=== PATIENT | male | born 1975 | race Caucasian/White ===

== ENCOUNTER 2024-06-06 02:07 | Emergency (ER) | payer OTHER, SELFPAY ==
[2024-06-06] VITALS (7 sets, daily range): BP systolic 103–164; BP diastolic 58–80; PULSE 83–89; RESP 16–20; TEMP 36.6; O2SAT 92–95; BMI 34.8
--- NOTE | 2024-06-06 02:22 | XRR_ITS ---
PROCEDURE INFORMATION: Exam: XR Chest Exam date and time: 06/06/2024 2:28 AM Age: 49 years old Clinical indication: Cough and shortness of breath; Cough with SOB; Additional info: Short of breath TECHNIQUE: Imaging protocol: Radiologic exam of the chest. Views: 1 view. COMPARISON: No relevant prior studies available. FINDINGS: Lungs: Possible mild right mid lung field pneumonia. Pleural spaces: Unremarkable. No pleural effusion. No pneumothorax. Heart/Mediastinum: Unremarkable. No cardiomegaly. Bones/joints: Moderate thoracic spondylosis. XR/XR chest 1V portable [id number] IMPRESSION: Possible mild right mid lung field pneumonia.
[2024-06-06] MEDS: ipratropium-albuterol 3 mL Neb INHALATION (02:23)
[2024-06-06 02:33] LABS: Basophils # 0.1 10^3/uL (0.0-0.1); Basophils % 1.5 %; Eosinophils # 0.4 10^3/uL (0.0-0.8); Eosinophils % 4.6 %; Hematocrit 44.1 % (37-53); Lymphocytes # 3.2 10^3/uL (0.8-4.8); Lymphocytes % 33.7 %; Mean Corpuscular HGB Conc 33.1 g/dL (30-55); Mean Corpuscular Hemoglobin 30.5 pg (27-33); Mean Corpuscular Volume 92.1 fl (82-101); Mean Platelet Volume 10.9 fL (7.4-10.4); Monocytes # 0.7 10^3/uL (0.2-0.9); Neutrophils # 4.91 10^3/uL (1.8-7.7); Neutrophils % 52.2 %; Nucleated Red Blood Cells % 0 %; Platelet Count 340 10^3/cmm (157-399); Red Blood Count 4.79 10^6/uL (3.85-5.65); Red Cell Distribution Width 13.2 % (12.1-15.1)
[2024-06-06 02:44] LABS: Base Excess VBG -0.6 mmol/L (-3.0-3.0); Blood Gas Sample Site Not specified; Blood Gas Sample Type Venous; HCO3 VBG 23.4 mmol/L (24-28); PCO2 VBG 35.8 mmHg (41-51); PO2 VBG 41.1 mmHg (25-40); Venous Blood Gas Hematocrit 43.9 % (42-52); pH VBG 7.42 (7.32-7.42)
[2024-06-06 03:04] LABS: Albumin Level 4.2 g/dL (3.5-5.2); Alkaline Phosphatase 83 U/L (40-130); Blood Urea Nitrogen 25 mg/dL (6-20); Calcium 9.6 mg/dL (8.5-10.5); Carbon Dioxide 21 mmol/L (22-29); Chloride 103 mmol/L (98-107); Creatinine Clr Calc Pharmacy 104.0286; Globulin 2.8 g/dL (1.3-4.6); Glomerular Filtration Rate 71.1 mL/min (90-130); Glucose 134 mg/dL (65-115); Osmolality Calculated 296 mOsm/kg (285-295); Sodium 140 mmol/L (136-145); Total Bilirubin 0.4 mg/dL (0.15-1.2)
[2024-06-06 03:05] LABS: Anion Gap 19.7 (5-19); Potassium 3.7 mmol/L (3.5-5.1)
[2024-06-06 03:06] LABS: NT Pro B Type Natriuretic Pept 559 pg/mL (0-125)
[2024-06-06 03:17] LABS: Alanine Aminotransferase < 5 U/L (0-41); Aspartate Amino Transferase 5 U/L (0-40)
--- NOTE | 2024-06-06 03:54 | ED_ITS ---
HPI - SOB/Dyspnea 2 General: Chief Complaint: Shortness of Breath/Dyspnea Stated Complaint: SoB lips tingling Time Seen by Provider: 06/06/24 02:21 History of Present Illness: HPI Narrative: Jody, an [place] with a history of hypertension, presents to the emergency department with shortness of breath and tingling lips. The patient reports waking up with these symptoms, with no apparent trigger or new medications. The patient describes feeling short of breath and experiencing tingling in the lips. The onset of symptoms was upon waking, with no clear precipitating factors mentioned. The patient denies any perioral swelling but reports feeling a little short of breath. When asked about the tingling sensation in the lips, the patient confirms it is still present during the examination. The patient mentions quitting smoking a year ago, which may be relevant to the current respiratory symptoms. The patient's medical history includes controlled hypertension, for which they are taking medication. They also report a history of acid reflux and high cholesterol. The patient is currently taking gabapentin and venlafaxine for depression but states they are no longer taking trazodone for sleep or the previously prescribed pain medication. No recent healthcare interactions or changes in overall health status were mentioned prior to this emergency department visit. The patient tried using an albuterol inhaler at home before coming to the emergency department, but it did not provide sufficient relief. Related Data Previous Rx's ?Medication ?Instructions ?Recorded ipratropium 0.5 mg-albuterol 3 mg 3 ml inhalation BID #90 mL 06/06/24 (2.5 mg base)/3 mL nebulization soln levofloxacin 750 mg tablet 750 mg PO DAILY 7 days #7 t abs 06/06/24 prednisone 20 mg tablet 20 mg PO DAILY #5 tabs 06/06 Allergies Allergy/AdvReac Type Severity Reaction Status Date / Time varenicline (From Chantix) Allergy Mild ADR-Anxiety Verified 06/06/24 04:36 Physical Exam 2 Narrative: EXAM NARRATIVE: Lung evaluation after a DuoNeb demonstrated crackles in the right lower lung and resolution of wheezing. He was then breathing easily and speaking in complete sentences. Const: COMMON NORMALS: no acute distress, patient oriented x3, healthy appearing, alert and well nourished HENMT: COMMON NORMALS: normocephalic HEAD & SCALP: normocephalic Eye: COMMON NORMALS: EOMs intact bilaterally Neck/C-Spine: COMMON NORMALS: full ROM and supple Resp: EFFORT & INSPECTION: Yes tachypneic, Yes labored, No stridor and Yes audible wheezes AUSCULTATION: wheezes throughout and diminished lung sounds bilateral Cardio: COMMON NORMALS: regular rate, regular rhythm, No gallops present (Cardio) and No murmurs present (Cardio) RATE: regular rate RHYTHM: r egular rhythm GI: COMMON NORMALS: Soft to palpation and non-tender PALPATION: Yes Soft to palpation Extremity: GENERAL: Yes normal exam except as noted Neuro: COMMON NORMALS: patient oriented x3 SENSORIUM/ORIENTATION: Yes alert Skin: COMMON NORMALS: no rashes or lesions noted GENERAL SKIN EXAM: no rashes or lesions noted Course 2 Vital Signs: Vital signs: Vital Signs Temperature 98 F 06/06/24 02:17 Pulse Rate 86 06/06/24 04:07 Respiratory Rate 16 06/06/24 04:07 Blood Pressure 128/60 06/06/24 04:07 Pulse Oximetry 92 06/06/24 04:07 Oxygen Delivery Me thod Nasal Cannula 06/06/24 04:07 Oxygen Flow Rate 2 06/06/24 03:21 MDM - SOB/Dyspnea Medical Decision Making 49-year-old male presents to the emergency department for evaluation of shortness of breath and tingling in his lips. Patient had significantly diminished breath sounds and wheezing upon arrival in the emergency department. A single DuoNeb treatment improved his breathing dramatically. He was able to titrate off of nasal cannula onto room air satting 9596% on room air. Chest x- ray demonstrated a right middle lobe pneumonia which was consistent with the crackles heard on exam. Given his significant wheezing on presentation the patient will be treated with prednisone and DuoNebs for the next week as well as started on Levaquin for 7 days. Encourage patient to follow with his primary care doctor within 1 week. Return precautions were discussed and the patient was discharged home in good condition. Differential Diagnosis Likely acute exacerbation of chronic obstructive airways disease, congestive heart failure, community acquired pneumonia, asthma with exacerbation and pulmonary embolism Lab Data 06/06/24 02:23 06/06/24 02:23 Labs/Radiology: Radiology Impressions Chest X-Ray 06/06/24 02:22 IMPRESSION: Possible mild right mid lung field pneumonia. Laboratory Results WBC 9.40 10^3/uL (3.29-11.43) 06/06/24 02:23 RBC 4.79 10^6/uL (3.85-5.65) 06/06/24 02:23 Hgb 14.60 g/dL (11.27-16.99) 06/06/24 02:23 Hct 44.1 % (37-53) 06/06/24 02:23 MCV 92.1 fl (82-101) 06/06/24 02:23 MCH 30.5 pg (27-33) 06/06/24 02:23 MCHC 33.1 g/dL (30-55) 06/06/24 02:23 RDW 13.2 % (12.1-15.1) 06/06/24 02:23 Plt Count 340 10^3/cmm (157-399) 06/06/24 02:23 MPV 10.9 fL (7.4-10.4) H 06/06/24 02:23 Neut % (Auto) 52.2 % 06/06/24 02:23 Lymph % (Auto) 33.7 % 06/06/24 02:23 Tate % (Auto) 7.0 % 06/06/24 02:23 Eos % (Auto) 4.6 % 06/06/24 02:23 Baso % (Auto) 1.5 % 06/06/24 02:23 Neut # (Auto) 4.91 10^3/uL (1.8-7.7) 06/06/24 02:23 Lymph # (Auto) 3.2 10^3/uL (0.8-4.8) 06/06/24 02:23 Tate # (Auto) 0.7 10^3/uL (0.2-0.9) 06/06/24 02:23 Eos # (Auto) 0.4 10^3/uL (0.0-0.8) 06/06/24 02:23 Baso # (Auto) 0.1 10^3/uL (0.0-0.1) 06/06/24 02:23 Nucleated RBC % (auto) 0 % 06/06/24 02:23 Nucleated RBCs # 0.0 /100WBC 06/06/24 02:23 Specimen Type Venous 06/06/24 02:39 Sample Site Not specified 06/06/24 02:39 Hans Test N/a 06/06/24 02:39 VBG pH 7.42 (7.32-7.42) 06/06/24 02:39 VBG pCO2 35.8 mmHg (41-51) L 06/06/24 02:39 VBG pO2 41.1 mmHg (25-40) H 06/06/24 02:39 VBG HCO3 23.4 mmol/L (24-28) L 06/06/24 02:39 VBG Base Excess -0.6 mmol/L (-3.0-3.0) 06/06/24 02:39 VBG Hematocrit 43.9 % (42-52) 06/06/24 02:39 Inspector Ball Points ID [email or web address] 06/06/24 02:39 Sodium 140 mmol/L (136-145) 06/06/24 02:23 Potassium 3.7 mmol/L (3.5-5.1) 06/06/24 02:23 Chloride 103 mmol/L (98-107) 06/06/24 02:23 Carbon Dioxide 21 mmol/L (22-29) L 06/06/24 02:23 Anion Gap 19.7 (5-19) H 06/06/24 02:23 BUN 25 mg/dL (6-20) H 06/06/24 02:23 Creatinine 1.1 mg/dL (0.7-1.2) 06/06/24 02:23 GFR Calculation 71.1 mL/min (90-130) L 06/06/24 02:23 Glucose 134 mg/dL (65-115) H 06/06/24 02:23 Calculated Osmolality 296 mOsm/kg (285-295) H 06/06/24 02:23 Calcium 9.6 mg/dL (8.5-10.5) 06/06/24 02:23 Total Bilirubin 0.4 mg/dL (0.15-1.2) 06/06/24 02:23 AST 5 U/L (0-40) 06/06/24 02:23 ALT < 5 U/L (0-41) 06/06/24 02:23 Alkaline Phosphatase 83 U/L (40-130) 06/06/24 02:23 NT-Pro-B Natriuret Pep 559 pg/mL (0-125) H 06/06/24 02:23 Total Protein 7.0 g/dL (6.6-8.7) 06/06/24 02:23 Albumin 4.2 g/dL (3.5-5.2) 06/06/24 02:23 Globulin 2.8 g/dL (1.3-4.6) 06/06/24 02:23 XR interpretation done by ED provider, pending radiology final review Discharge Plan Discharge Patient Disposition: Home Clinical Impression: Acute exacerbation of chronic obstructive airways disease Community acquired pneumonia Qualifiers: Laterality: right Lung location: middle lobe of lung Qualified Code(s): J18.9 - Pneumonia, unspecified organism Condition: Stable Prescriptions: New levofloxacin 750 mg tablet 750 mg PO DAILY 7 Days Qty: 7 0RF prednisone 20 mg tablet 20 mg PO DAILY Qty: 5 0RF ipratropium-albuterol 0.5 mg-3 mg(2.5 mg base)/3 mL solution for nebulization 3 ml inhalation BID Qty: 90 0RF Discharge Orders: Discharge ED (Routine); Ordered 06/06/24 Ordered By: Ovidio Guillory Referrals: Aretha Rosario MD [Primary Care Provider] - Discharge Diet: Advance as tolerated Discharge Activity: Increase activity as tolerated Patient Instructions: Opioid Safety, Pain Management Print Language: Mohawk Coding Level of Care Code ED Senior Java Web Developer for Evelyn Martinez
[2024-06-06] MEDS: levoFLOXacin 750 mg Tablet PO (04:41)
== END 2024-06-06 05:50 | disposition home or self-care (01) ==
PROVIDERS: Emergency Provider General Practice; PCP Family Medicine
DX: J44.1 Chronic obstructive pulmonary disease with (acute) exacerbation (principal); J18.9 Pneumonia, unspecified organism
CPT/HCPCS: 71045; 80053; 82803; 83880; 85025; 94640; 99284; J9999

== ENCOUNTER 2024-10-21 08:33 | Emergency (ER) | payer OTHER, SELFPAY ==
--- NOTE | 2024-10-21 08:36 | ECG_ITS ---
[facility]24[facility]21 Pat Name: Bobo Vera Department: Room: Gender: Male Inclusion Manager: : 1975 Requested By: Mina Castrejon Order Number: [id number] Summer MD: Jose Arredondo M.D. Measurements Intervals [place] Rate: 65 P: -2 IN: 161 QRS: 53 QRSD: 96 T: 59 QT: 451 QTc: 472 Interpretive Statements SINUS RHYTHM MILD DIFFUSE ST ELEVATION, CONSIDER EARLY REPOLARIZATION, PERICARDITIS, AND INJURY PROLONGED QT INTERVAL No previous ECG available for comparison Electronically Signed On 10-21-2024 21:40:12 CDT by Jose Arredondo M.D. [email or web address]
[2024-10-21 08:38] VITALS: BP 149/76; PULSE 64; RESP 18; TEMP 36.7; O2SAT 99; BMI 35.2
--- NOTE | 2024-10-21 08:39 | XR_ITS ---
WS: [id number] Portable AP upright chest, 10/21/2024 Clinical Data: chest pain Comparison: Portable chest, 06/06/2024 Findings: No nodules, masses or effusions are seen. The heart is normal. The pulmonary vascularity is not increased. No pneumonia or pneumothorax is seen. Monitor leads are on the chest wall. XR/XR chest 1V portable [id number] Impression: Negative chest.
--- NOTE | 2024-10-21 08:40 | W.ED.CHESTPA ---
HPI - Chest Pain General: Chief Complaint: Chest Pain Stated Complaint: CP hands and feet going numb vision went white Time Seen by Provider: 10/21/24 08:39 History of Present Illness: 49-year-old male presents emergency room complaining of discomfort. 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 Today he started getting some chest discomfort describes it as more of a pressure in the center of his chest he gets some associated clamminess and shortness of breath with that he has some mild chest discomfort at this time. He has a history of paroxysmal atrial fibrillation he is on metoprolol for this no anticoagulation he is also on an SITA inhibitor and hydrochlorothiazide. He did take all of his medications today. He has no known history of coronary artery disease several years ago when he first had A-fib he had not angiogram when she was told was normal. He converted spontaneously and was on metoprolol since then. Associated symptoms: Deny abdominal pain, dyspnea, fever(s) or palpitations Related Data Home Medications ?Medication ?Instructions ?Recorded ?Confirmed benazepril 5 mg tablet 5 mg PO DAILY 10/21/24 10/21/24 clomiphene citrate 50 mg tablet 50 mg PO DAILY 10/21/24 10/21/24 (Clomid) diclofenac sodium 75 mg 75 mg PO BID 10/21/24 10/21/24 tablet,delayed release famotidine 40 mg tablet 40 mg PO DAILY 10/21/24 10/21/24 fenofibrate nanocrystallized 145 145 mg PO DAILY 10/21/24 10/21/24 mg tablet gabapentin 300 mg capsule 300 mg PO BID 10/21/24 10/21/24 metoprolol tartrate 100 mg tablet See Rx Instructions .Route .COMPLEX 10/21/24 10/21/24 montelukast 10 mg tablet 10 mg PO DAILY 10/21/24 10/21/24 pravastatin 80 mg tablet 40 mg PO QPM 10/21/24 10/21/24 tadalafil 20 mg tablet 20 mg PO DAILY PRN Erectile 10/21/24 10/21/24 Dysfunction venlafaxine 150 mg 150 mg PO DAILY 10/21/24 10/21/24 capsule,extended release 24 hr Allergies Allergy/AdvReac Type Severity Reaction Status Date / Time varenicline (From Chantix) Allergy Mild ADR-Anxiety Verified 06/06/24 04:36 Review of Systems Const: Denies: fever(s) or chills Card: Reports: chest pain (Pressure); Denies: palpitations, edema or swelling of feet/ankles Resp: Denies: dyspnea GI: Denies: abdominal pain : Denies: dysuria, urinary frequency or urinary urgency Musc: Denies: neck pain or back pain Skin/Breast: Denies: rash Neuro: Reports: dizziness [facility] ED PFSH: Medical History Paroxysmal atrial fibrillation Physical Exam Const: GENERAL APPEARANCE: cooperative ORIENTATION/CONSCIOUSNESS: Yes awake, Yes oriented to person, Yes oriented to place and Yes oriented to time HENMT: COMMON NORMALS: normocephalic, atraumatic and hearing grossly normal bilaterally HEAD & SCALP: normocephalic and atraumatic Resp: COMMON NORMALS: normal respiratory effort, No retractions, No use of accessory muscles and clear to auscultation bilaterally AUSCULTATION: clear to auscultation bilaterally Cardio: COMMON NORMALS: regular rate, regular rhythm and No murmurs present (Cardio) RATE: regular rate RHYTHM: regular rhythm GI: COMMON NORMALS: Soft to palpation and No hepatosplenomegaly present AUSCULTATION: Yes normoactive bowel sounds PALPATION: Yes Soft to palpation, No Tenderness to palpation present (GI), No Guarding due to palpation present (GI) and Yes No hepatosplenomegaly present Extremity: COMMON NORMALS: normal to inspection, capillary refill normal, no clubbing, cyanosis or edema, no calf tenderness and no pedal edema Neuro: SENSORIUM/ORIENTATION: Yes oriented to person, Yes oriented to place and Yes oriented to time Skin: COMMON NORMALS: no rashes or lesions noted GENERAL SKIN EXAM: no rashes or lesions noted Course Vital Signs: Vital signs: Vital Signs Temperature 98.1 F 10/21/24 08:38 Pulse Rate 63 10/21/24 11:45 Respiratory Rate 18 10/21/24 08:38 Blood Pressure 134/73 10/21/24 11:45 Pulse Oximetry 96 10/21/24 11:45 Oxygen Delivery Me thod Room Air 10/21/24 10:48 MDM - Chest Pain Medical Decision Making No further symptoms at this time. Large part of his symptoms seem to be postural he reports that he gets lightheaded dizzy when he bends over and then stands back up. He has not had a lot of palpitations or arrhythmias has the previous history of paroxysmal A-fib he reports he had converted spontaneously and has been controlled with metoprolol is not on any anticoagulation. Cardiac enzymes and EKG did not show acute coronary syndrome. Will discharge patient home outpatient Lexiscan sestamibi stress test 72-hour Holter monitor and will have him hold his hydrochlorothiazide follow-up with cardiology or primary care to review results return if he has further problems. Medical Records I reviewed the patient's medical records. Lab Data I reviewed the patient's lab results. 10/21/24 08:45 10/21/24 08:45 Radiology Impressions Chest X-Ray 10/21/24 08:39 Impression: Negative chest. Laboratory Results WBC 9.58 10^3/uL (3.29-11.43) 10/21/24 08:45 RBC 4.88 10^6/uL (3.85-5.65) 10/21/24 08:45 Hgb 14.40 g/dL (11.27-16.99) 10/21/24 08:45 Hct 44.0 % (37-53) 10/21/24 08:45 MCV 90.2 fl (82-101) 10/21/24 08:45 MCH 29.5 pg (27-33) 10/21/24 08:45 MCHC 32.7 g/dL (30-55) 10/21/24 08:45 RDW 13.8 % (12.1-15.1) 10/21/24 08:45 Plt Count 285 10^3/cmm (157-399) 10/21/24 08:45 MPV 10.6 fL (7.4-10.4) H 10/21/24 08:45 Neut % (Auto) 58.5 % 10/21/24 08:45 Lymph % (Auto) 25.7 % 10/21/24 08:45 Baldwin % (Auto) 9.3 % 10/21/24 08:45 Eos % (Auto) 4.6 % 10/21/24 08:45 Baso % (Auto) 1.4 % 10/21/24 08:45 Neut # (Auto) 5.61 10^3/uL (1.8-7.7) 10/21/24 08:45 Lymph # (Auto) 2.5 10^3/uL (0.8-4.8) 10/21/24 08:45 Baldwin # (Auto) 0.9 10^3/uL (0.2-0.9) 10/21/24 08:45 Eos # (Auto) 0.4 10^3/uL (0.0-0.8) 10/21/24 08:45 Baso # (Auto) 0.1 10^3/uL (0.0-0.1) 10/21/24 08:45 Nucleated RBC % (auto) 0 % 10/21/24 08:45 Nucleated RBCs # 0.0 /100WBC 10/21/24 08:45 Sodium 139 mmol/L (136-145) 10/21/24 08:45 Potassium 4.3 mmol/L (3.5-5.1) 10/21/24 08:45 Chloride 104 mmol/L (98-107) 10/21/24 08:45 Carbon Dioxide 25 mmol/L (22-29) 10/21/24 08:45 Anion Gap 14.3 (5-19) 10/21/24 08:45 BUN 29 mg/dL (6-20) H 10/21/24 08:45 Creatinine 1.2 mg/dL (0.7-1.2) 10/21/24 08:45 GFR Calculation 64.4 mL/min (90-130) L 10/21/24 08:45 Glucose 105 mg/dL (65-115) 10/21/24 08:45 Calculated Osmolality 294 mOsm/kg (285-295) 10/21/24 08:45 Calcium 10.2 mg/dL (8.5-10.5) 10/21/24 08:45 Total Bilirubin 0.4 mg/dL (0.15-1.2) 10/21/24 08:45 AST 22 U/L (0-40) 10/21/24 08:45 ALT 24 U/L (0-41) 10/21/24 08:45 Alkaline Phosphatase 59 U/L (40-130) 10/21/24 08:45 Troponin T Baseline 18 ng/L (0-15) H 10/21/24 08:45 Troponin T 120 Minute 16.95 ng/L (0-15) H 10/21/24 10:30 Delta Troponin T -1.05 ABS# (0-10) L 10/21/24 10:30 Total Protein 6.9 g/dL (6.6-8.7) 10/21/24 08:45 Albumin 4.4 g/dL (3.5-5.2) 10/21/24 08:45 Globulin 2.5 g/dL (1.3-4.6) 10/21/24 08:45 All radiology interpretation(s) finalized by discharge EKG Data EKG 1: Interpretation: EKG 10/21/2024 8:36 AM sinus rhythm rate of 65. No focal 161 QTc 463. LVH with early repull no ST elevation no T wave inversion does have prolonged QT. No previous EKGs for comparison EKG 2: Interpretation: EKG 910 2024-11-26. QT slightly prolonged otherwise normal sinus rhythm with a rate of 60 SD interval 151 QTc is 471. There is some slight changes of early repull but no acute ST changes noted compared to previous EKGs done on the same day no significant change Discharge Plan Discharge Patient Disposition: Home Clinical Impression: Atypical chest pain, Paroxysmal atrial fibrillation, Orthostasis, Medication side effect Condition: Stable Prescriptions: Discontinued hydrochlorothiazide 25 mg Tablet 25 mg PO DAILY No Action benazepril 5 mg Tablet 5 mg PO DAILY metoprolol tartrate 100 mg Tablet See Rx Instructions .ROUTE .COMPLEX Rx Instructions: Take 1 tablet by mouth up to twice daily. clomiphene citrate [Clomid] 50 mg tablet 50 mg PO DAILY famotidine 40 mg Tablet 40 mg PO DAILY venlafaxine 150 mg Capsule,Extended Release 24hr 150 mg PO DAILY pravastatin 80 mg Tablet 40 mg PO QPM gabapentin 300 mg Capsule 300 mg PO BID diclofenac sodium [Voltaren] 75 mg Tablet,Delayed Release (Dr/Ec) 75 mg PO BID montelukast 10 mg Tablet 10 mg PO DAILY tadalafil 20 mg Tablet 20 mg PO DAILY PRN (Reason: Erectile Dysfunction) Rx Instructions: administer approximately 30min before sexual activity; do not use more than 1 dose per 24hrs fenofibrate nanocrystallized 145 mg Tablet 145 mg PO DAILY Discharge Orders: Discharge ED (Routine); Ordered 10/21/24 Ordered By: Mina Wick Referrals: Aretha Rosario MD [Primary Care Provider, Family Practice] Discharge Diet: Usual diet Discharge Activity: Resume usual activity Patient Instructions: Opioid Safety, Pain Management, Patient Portal & [place] Instructions Activity Restrictions/Additional Instructions: Thank you for choosing [facility] for your healthcare needs today. It is very important that you follow up as instructed or that you return to the Emergency Department should you have concerns or if your condition changes or worsens in any way. Emergency department visits are focused on emergent conditions, in some cases you may require further evaluation on an outpatient basis. You were seen in the emergency room with complaints of lightheadedness dizziness and some chest pain. Your EKG did not show any acute abnormalities. Your cardiac enzymes were normal. Based on your description of symptoms suspect that you may have some orthostasis. This is when you are changing body position causes your blood pressure drop this accounts for the dizziness and the sense of the vision decreasing at times. Recommend that you hold the hydrochlorothiazide for now. Additionally we will recommend that you get an outpatient stress test. Finally because of your history of A-fib recommend that you have a 3-day Holter monitor, this evaluates for any intermittent episodes of atrial fibrillation. For now continue the rest of your medications as previously prescribed pending the results of these tests. He should follow-up with a loss prevention guard. Case management will make arrangements for the testing and referral. (Please note that included in your discharge packet is information concerning opioid safety and pain management. This information is given to all patients were discharged from the ER regardless of their discharge diagnosis or the medicines they usually take or are prescribed.) Print Language: Yoruba Coding Level of Care Code ED Faro Dealer for Evelyn Martinez
--- OUTSIDE RECORDS SUMMARY | 2024-10-21 08:46 | XMS_ITS | Encounter Summary ---
Author Organization [facility] Address [address] [place] [address] Care Team Providers Care Vocational Examiner Name Role Phone Moises Vanegas MD Primary Care Provider [id number] Encounter Details Date Type Department Care Team (Latest Contact Info) Description 12/30/2000 Outpatient Historical [facility] [place] [address] [place] [address] Jayson Constantino Jr., MD [address] [facility] [address] [place] [address] HERPES SIMPLEX NOS (Primary Dx) Social History Tobacco Use Types Packs/Day Years Used Date Smoking Tobacco: Never Assessed Sex and Gender Information Value Date Recorded Sex Assigned at Not on file 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
--- OUTSIDE RECORDS SUMMARY | 2024-10-21 08:46 | XMS_ITS | Encounter Summary ---
Author Organization [facility] Address [address] [place] [address] Care Team Providers Care Retail Field Representative Name Role Phone Moises Vanegas MD Primary Care Provider -[id number] Reason for Referral * Outpatient Services (Routine) - Closed Specialty Diagnoses / Procedures Referred By Evelio encinas Referred To Contact Diagnoses Lumbosacral radiculitis Procedures XR FLUORO NEEDLE GUIDANCE Iam Denise MD Referral ID Status Reason Start Date Expiration Date Visits Re quested Visits Authorized [id number] Closed 01/16/2016 02/15/2017 1 1 FINISHER Encounter Details Date Type Department Care Team (Late Contact Info) Description 01/16/2016 Ancillary Orders [facility] Pain Management Procedures [place] [address] [place] [id number] Iam Denise MD NO ADDRESS ON FILE Lumbosacral radiculitis Social History Tobacco Use Types Packs/Day Years Used Date Smoking Tobacco: Every Day Cigarettes 0.3 16 Smokeless Tobacco: Never Alcohol Use Standard Drinks/Week Comments No 14 (1 standard drink = 0.6 oz pu re alcohol) occ 2 drinks daily or less Sex and Gender Information Value Date Recorded Sex Assigned at Not on file 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 Exam was auto-finalized. us Iam Denise MD DIAGNOSTIC IMAGING ORDERAB LES Final Result documented in this encounter Visit Diagnoses Diagnosis Lumbosacral radiculitis Thoracic or lumbosacral neuritis or radiculitis, unspecified Lumbosacral radiculitis Thoracic or lumbosacral neuritis or radiculitis, unspecified documented in this encounter Care Teams Retail Field Representative Relationship Specialty Start Date End Date Moises Vanegas MD [phone] (Work) PCP - General Family Practice 01/27/20 documented as of this encounter
--- OUTSIDE RECORDS SUMMARY | 2024-10-21 08:46 | XMS_ITS | Encounter Summary ---
Author Organization [facility] Address [address] [facility] [address] Care Team Providers Care Women'S Lacrosse Coach Name Role Phone Moises Vanegas MD Primary Care Provider -[phone] Encounter Details Date Type Department Care Team (Latest Contact Info) Description 01/25/2004 Outpatient [facility] Podiatry-[facility] [place] [address] [place] [address] Luigi Johnson DPKhalif NO ADDRESS ON FILE INGROWING NAIL (Primary Dx); Onychia of toe; OTHER HAMMER TOE Social History Tobacco Use Types Packs/Day Years Used Date Smoking Tobacco: Never Assessed Sex and Gender Information Value Date Recorded Sex Assigned at Not on file 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
--- OUTSIDE RECORDS SUMMARY | 2024-10-21 08:46 | XMS_ITS | Encounter Summary ---
Author Organization [facility] Address [address] [facility] [place] [address] Care Team Providers Care Design Assembler Name Role Phone Moises Vanegas MD Primary Care Provider -[phone] Encounter Details Date Type Department Care Team (Latest Contact Info) Description 06/26/2005 Outpatient Historical [facility] Family Medicine-[facility] [place] [address] [place] [address] Mansi Munguia MD [address] [place] [address] Other Nonspecific Findings on Examination of Blood (Primary Dx) Social History Tobacco Use Types Packs/Day Years Used Date Smoking Tobacco: Never Assessed Sex and Gender Information Value Date Recorded Sex Assigned at Not on file 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
--- OUTSIDE RECORDS SUMMARY | 2024-10-21 08:46 | XMS_ITS | Clinical Summary ---
Author Organization [facility] Address [address] [place]: Epic Prelude ADT [place] [address] Care Team Providers Care Type Copy Examiner Name Role Phone Hi, Team 1 [place] Primary Care Provider [phone] Allergies Active Allergy Reactions Criticality Noted Date Comments Varenicline Other (See Comments) High 03/04/2008 Depression, suicidal thoughts/CHANTIX Medications fluticasone propionate (FLONASE) 50 mcg/spray [place], Suspension nasal inhaler 0 Active albuterol sulfate (ProAir HFA) 90 mcg/Actuation inhaler 0 Active montelukast (SINGULAIR) 10 mg tablet 0 Active metoprolol tartrate (LOPRESSOR) 100 mg tablet 100 mg 2 times daily. 0 Active aspirin (ECOTRIN EC) 81 mg Tablet, Delayed Release (E.C.) TAKE ONE TABLET BY MOUTH ONCE DAILY 9 Active mometasone-formotero l (Dulera) 200-5 mcg/actuation inhaler Take 2 Puffs by inhalation. Active armodafiniL (NUVIGIL) 150 mg tablet Take 150 mg by mouth. Active famotidine (PEPCID) 40 mg tablet Take 40 mg by mouth 2 times daily. Active fenofibrate nanocrystallized (TRICOR) 145 mg tablet Take 145 mg by mouth daily. Active tamsulosin (FLOMAX) 0.4 mg capsule Take 0.4 mg by mouth daily. Active pravastatin (PRAVACHOL) 80 mg tablet Take 40 mg by mouth daily with supper. Active hydroCHLOROthiazide (HYDRODIURIL) 12.5 mg tablet Take 1 Tablet (12.5 mg) by mouth daily. 10 Tablet 2 Active gabapentin (NEURONTIN) 300 mg capsuleIndications:L umbar disc herniation with radiculopathy,S/P lumbar laminectomy,S/P fusion of sacroiliac joint Take 1 Capsule (300 mg) by mouth 3 times daily. 90 Capsule 3 3 Active acetaminophen (TYLENOL ORAL) Take by mouth. Active medical marijuana, for documentation purposes, Take by inhalation. Active benazepriL (LOTENSIN) 5 mg tablet Take 1 Tablet by mouth daily. 4 Active clomiPHENE citrate (CLOMID) 50 mg tablet Take 25 mg by mouth daily. 5 Active HYDROcodone-acetamin ophen (NORCO) 5-325 mg tabletIndications:La teral epicondylitis of right elbow,Medial epicondylitis of right elbow Take 1 Tablet by mouth 2 times daily as needed for Pain, Moderate. Max Daily Amount: 2 Tablets 8 Tablet 5 Active diclofenac sodium (VOLTAREN) 75 mg Tablet, Delayed Release (E.C.)Indications:La teral epicondylitis of right elbow,Radial collateral ligament sprain of elbow, right, sequela Take 1 Tablet (75 mg) by mouth 2 times daily. 60 Tablet 2 5 Active Active Problems Problem Noted Date Diagnosed Date Lumbar back pain with radicu lopathy affecting lower extremity 01/01/2023 ASHD (arteriosclerotic heart disease) 11/01/2021 Chest pain 10/31/2021 FRANK on CPAP 03/04/2019 BPH (benign prostatic hyperplasia) 03/04/2019 Preoperative general physical examination 2019 GERD (gastroesophageal reflux disease) 0 Anxiety 03/04/2019 Sacroiliitis 03/04/2019 Severe obesity (BMI 35.0-39.9) with comorbidity 03/04/2019 COPD (chronic obstructive pulmonary disease) Injury of finger of left hand 11/05/2015 Tenosynovitis of right foot 08/01/2015 Idiopathic peripheral neuropathy 08/01/2015 Lumbar epidural mass 05/04/2015 Ganglioneuroma 05/04/2015 Lumbar disc herniation with radiculopathy 2015 Tobacco use 02/23/2015 Essential hypertension 08/17/2013 Dyslipidemia 08/17/2013 Paroxysmal atrial fibrillation 08/17/2013 Leukocytosis 08/17/2013 Anal fistula 10/26/2010 Headache(784.0) 10/12/2008 Depression 04/09/2008 Resolved Problems Problem Noted Date Diagnosed Date Resolved Date Sore throat 04/09/2008 04/09/2008 Encounters Date Type Department Care Team Description 10/13/2024 External Device Data [facility] ABSTRACTION Provider, Abstract 09/30/2024 External Device Data [facility] ABSTRACTION Provider, Abstract 09/16/2024 External Device Data [facility] ABSTRACTION Provider, Abstract 08/26/2024 External Device Data [facility] ABSTRACTION Provider, Abstract 08/24/2024 8:30 AM CDT - 08/24/2024 11:59 PM CDT Hospital Encounter [facility] Out[facility] [place] [address] [place] [address] Akira Clement MD Discharge Disposition: Home or Self Care 07/24/2024 1:45 PM CDT Office Visit [facility] [address] [place] [address] Ronn Lindsey, Lateral epicondylitis of right elbow; Radial collateral ligament sprain of elbow, right, sequela from Last 3 Months Immunizations Immunization Administration Dates Next Due Influenza Seasonal Unspecified Formulation IM Family History Medical History Relation Name Comments High Cholesterol Brother Maximus Vera Hypertension Brother Maximus Vera Alive Healthy Daughter High Cholesterol Father Jf Vera Alive Cancer Maternal Grandfather Jayson Amaro Lung Ca ncer Colon Cancer Maternal Grandmother Kenzie Amaro at 78 High Cholesterol Mother Denise Bean Alive Colon Cancer Paternal Grandmother Other Sister 1 migraine No Known Problems Sister 2 No Known Problems Sister 3 Healthy Son Trinh Vera Healthy Relation Name Status Comments Brother Maximus Vera Alive Daughter Alive Father Jf Vera Alive Maternal Grandfather Jayson Amaro Maternal Grandmother Kenzie Amaro Mother Denise Bean Alive Paternal Grandmother Sister 1 Alive Sister 2 Alive Sister 3 Alive Son Trinh Vera Alive Social History Tobacco Use Types Packs/Day Years Used Date Smoking Tobacco: Former Cigarettes Smokeless Tobacco: Never Tobacco Cessation:Counseling Given: Not Answered Alcohol Use Standard Drinks/Week Comments Yes 3 (1 standard drink = 0.6 oz pur e alcohol) Feeling Safe Answer Date Recorded Are you in a relationship wi th someone who hurts you emotionally and/or physically? 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 Gender Identity Male 09/18/2022 10:28 AM CDT Sexual Orientation Straight 09/18/2022 10 :28 AM CDT Last Filed Vital Signs Vital Sign Reading Time Taken Comments Blood Pressure 124/60 07/24/2024 1:26 PM CDT Pulse 67 05/29/2023 7:54 AM CDT Temperature 36.2 C (97.2 F) 05/01/2023 11:30 AM CDT Respiratory Rate 16 05/01/2023 12:0 0 PM CDT Oxygen Saturation 98% 05/29/2023 7:54 AM CDT Inhaled Oxygen Concentration - - Weight 115.4 kg (254 lb 6.4 oz) 07/24/2024 1:26 PM CDT Height 180.3 cm (5' 11 ) 07/24/2024 1:26 PM CDT Body Mass Index 35.48 07/24/2024 1:26 PM CDT Plan of Treatment Health Maintenance Due Date Last Done Comments Pre-Diabetes and Diabetes Screening 1975 HEPATITIS B VACCINES (1 of 3 - 19+ 3-dose series) 1994 FIT-DNA Q 3 years 2020 FIT/FOBT Q 1 year 2020 Flex Sig/CT Colonography Q 5 years 2020 INFLUENZA VACCINE (#1) 2024 3, 01/30/2023, 12/03/2019, Additional history exists COLORECTAL SCREENING 10/20/2029 10/21/2019, 10/21/19 20 Colorectal Cancer Screening 10/20/2029 DTAP/TDAP/TD VACCINES (3 - T d or Tdap) 05/10/2030 05/10/2020, 02/11/2013, 07/12/2001, Additional history exists Medical Devices Implanted Type Area Screen Stretcher Device Identifier Shelf Expiration Date Model / Serial / Lot Hemostatic Gelfoam Powder 1gm [id number] - [id number] Implanted:Qty: 1 on 05/03/2015 by Edmundo Haq MD Hemostatic N/A: Spine Lumbar PFIZER- PHARM 12/11/2017 [id number] / / [id number] Hemostatic Gelfoam Spng 12-7mm [id number] - Csc - [id number] Implanted:Qty: 1 on 05/03/2015 by Edmundo Haq MD Hemostatic N/A: Spine Lumbar PFIZER- PHARM 03/13/2017 [id number] / / [id number] Pin Vidhi 3.2mm [id number] - [id number] Implanted:Qty: 1 on 04/06/2019 by Edmundo Haq MD Pin N/A: Spine Lumbar [employer] [id number] / / [id number] [place]-02 Pin Vidhi 3.2mm [id number] - [id number] Implanted:Qty: 1 on 04/06/2019 by Edmundo Haq MD Pin N/A: Spine Lumbar [employer] [id number] / / [id number] IN-02 Pin Vidhi 3.2mm [id number] - [id number] Implanted:03/15 by Edmundo Haq MD (Quantity not on file) Pin N/A: Spine Lumbar [employer] [id number] / / [id number] IN-02 Ifuse 7x40mm 7040m-90 - [id number] Implanted:03/15 by Edmundo Haq MD (Quantity not on file) Spine N/A: Spine Lumbar [employer] 09/16/2023 7040M-90 / / [id number] Ifuse 7x45mm 7045m-90 - [id number] Implanted:03/15 by Edmundo Haq MD (Quantity not on file) Spine N/A: Spine Lumbar [employer] 12/31/2023 7045M-90 / / [id number] Ifuse 7x50mm 7050m-90 - [id number] Implanted:Qty: 1 on 04/06/2019 by Edmundo Haq MD Spine N/A: Spine Lumbar [employer] 12/11/2023 7050M-90 / / [id number] Explanted Type Area Screen Stretcher Device Identifier Shelf Expiration Date Model / Serial / Lot Bone Screw Explanted:Qty: 1 on 05/27/2008 Left: Ankle Procedures Procedure Name Priority Date/Time Associated Diagnosis Comments COLONOSCOPY REPORT 10/21/2019 10 :34 AM CDT from Last 3 Months or Most Recently Relevant to Health Maintenance Results * COLONOSCOPY REPORT (10/21/2019 10:34 AM CDT) Narrative Procedure Note Robson Fox MD - 10/21/2019 10:34 AM CDT Procedures signed by Robson Fox MD at 10/21/2019 10:35 AM Author: Robson Fox MD Service: -- Author Type: Physician Filed: 10/21/2019 10:35 AM Date of Service: 10/21/2019 10:35 AM Status:Signed Business Coordinator: Robson Fox MD (Physician) Procedure Orders 1. COLONOSCOPY REPORT [[id number]] ordered by Robson Fox MDat 10/21/19 [facility] Patient Name: Chapito Vera Procedure Date: 10/21/2019 Date of : 1975 Admit Type: Outpatient Age: 44 Attending MD: Robson Fox , Procedure: Colonoscopy Indications: History of anal fissures/rectal bleeding Providers: Robson Fox Referring MD: Nitin Madden MD Medicines: Monitored Anesthesia Care Complications: No immediate complications. Estimated blood loss: Minimal. Procedure: Pre-Anesthesia Assessment: - Prior to the procedure, a History and Physical was performed, and patient medications and allergies were reviewed. The patient's tolerance of previous anesthesia was also reviewed. The risks and benefits of the procedure and the sedation options and risks were discussed with the patient. All questions were answered, and informed consent was obtained. Prior Anticoagulants: The patient has taken no previous anticoagulant or antiplatelet agents. ASA Grade Assessment: II - A patient with mild systemic disease. After reviewing the risks and benefits, the patient was deemed in satisfactory condition to undergo the procedure. - [place] Protocol: - Pre-procedure Verification: Prior to the procedure, the patient's identity was verified by full name and date of . The patient's identity was verified on all pertinent medical records, including History and Physical. Also prior to the procedure, a History and Physical was performed, and patient medications, allergies and sensitivities were reviewed. The patient's tolerance of previous anesthesia was reviewed. The risks and benefits of the procedure and the sedation options and risks were discussed with the patient. All questions were answered and informed consent was obtained. - Time-Out: Prior to the start of the procedure, the patient's identification, proposed procedure, accurate signed consent, correctly labeled images and records, and need for prophylactic antibiotics were verified by the physician and the nurse in the endoscopy suite. After I obtained informed consent, the scope was passed under direct vision. Throughout the procedure, the patient's blood pressure, pulse, and oxygen saturations were monitored continuously. The Colonoscope was introduced through the anus and advanced to the terminal ileum. The colonoscopy was performed without difficulty. The patient tolerated the procedure well. The terminal ileum, ileocecal valve, appendiceal orifice, and rectum were photographed. The entire colon was examined. Estimated Blood Loss: Estimated blood loss was minimal. Findings: The perianal and digital rectal examinations were normal. Pertinent negatives include normal sphincter tone, no palpable rectal lesions and no anal lesion or abnormality. Non-bleeding internal hemorrhoids were found during retroflexion. The hemorrhoids were small. The entire examined colon appeared normal. The terminal ileum appeared normal. Impression: - Non-bleeding internal hemorrhoids. - The entire examined colon is normal. - The examined portion of the ileum was normal. - No specimens collected. Recommendation: - Resume previous diet. - Continue present medications. - Repeat colonoscopy in 10 years for surveillance. - Patient has a contact number available for emergencies. The signs and symptoms of potential delayed complications were discussed with the patient. Return to normal activities tomorrow. Written discharge instructions were provided to the patient. - Return to primary care physician as previously scheduled. - The findings and recommendations were discussed with the patient's family. Robson Fox, 10/21/2019 10:34:53 AM Number of Addenda: 0 Note Initiated On: 10/21/2019 9:56 AM Scope Withdrawal Time 0 hours 6 minutes 47 seconds Scope In: 10:19:53 AM Scope Out: 10:32:04 AM [address] [place], [place] Robson Fox MD GI PROCEDURE ORDERABL ES Edited Result - Final from Last 3 Months or Most Recently Relevant to Health Maintenance Insurance * Guarantor: CHAPITO VERA Account Type Relation to Patient Date of Phone Billing Address Personal/Family [address] [place] [id number] [address] [facility] Commercial * Guarantor: OLD [employer] [facility] Account Type Relation to Patient Date of Phone Billing Address Corporate Other DEFAULT ADDRESS [address] [employer] [facility] [employer] * Guarantor: OLD [employer]-[facility] [employer] Account Type Relation to Patient Date of Phone B[facility] [address] [employer] Member Subscriber Plan / Payer (Ef fective 2020-Present) Name:Brandonstevenbridgette Chapito P Relation to Subscriber:Self Name:Chapito Vera P Payer ID:Not on file Group ID:Not on file Type:[place] Address: [place] [id number] * Guarantor: OLD [employer]-[facility] Account Type Relation to Patient Date of Phone Billing [facility] DEFAULT ADDRESS [address] [employer] * Guarantor: OLD [employer] [employer] Account Type Relation to Patient Date of Phone Billing Address Corporate Employer DEFAULT ADDRESS [address] [employer] Advance Directives For more information, please contact: [phone] Documents on File Type Date Recorded Patient Marketing And Communications Officer Expl anation Advance Directive POA 05/06/2015 10:51 AM Advance Directive POA * Full Code (Latest Code Status on File) Date Activated Date Inactivated Comments 11/01/2021 1:03 AM 11/01/2021 6:05 PM Care Teams Type Copy Examiner Relationship Specialty Start Date End Date Hi, Team 1 [place] [address] [place] [phone] PCP - General Osteologist 12/06/22
--- OUTSIDE RECORDS SUMMARY | 2024-10-21 08:46 | XMS_ITS | Encounter Summary ---
Author Organization [facility] Address [address] [place] [address] Care Team Providers Care Parking Meter Mechanic Name Role Phone Moises Vanegas MD Primary Care Provider [phone] Encounter Details Date Type Department Care Team (Latest Contact Info) Description 02/18/2003 Outpatient Historical [facility] Operating Room [address] [place] [address] Nitin Conrad MD [address] [address] TORSION OF TESTIS (Primary Dx) Social History Tobacco Use Types Packs/Day Years Used Date Smoking Tobacco: Never Assessed Sex and Gender Information Value Date Recorded Sex Assigned at Not on file Legal Sex Male 5:[address] WORKER Gender Identity Not on file Sexual Orientation Not on file documented as of this encounter Plan of Treatment Not on file documented as of this encounter Visit Diagnoses Diagnosis Torsion of testis- Primary documented in this encounter Care Teams Parking Meter Mechanic Relationship Specialty Start Date End Date Moises Vanegas MD [phone] (Work) PCP - General Family Practice 01/27/20 documented as of this encounter
--- OUTSIDE RECORDS SUMMARY | 2024-10-21 08:46 | XMS_ITS | Encounter Summary ---
Author Organization [facility] Address [address] [place] [address] Care Team Providers Care Sales Operations Associate Name Role Phone Moises Vanegas MD Primary Care Provider [phone] Encounter Details Date Type Department Care Team (Latest Contact Info) Description 03/11/2003 Outpatient Historical [facility] Cardiovascular Services [address] [place] [address] Nitin Conrad MD [address] [address] PAIN IN LIMB (Primary Dx) Social History Tobacco Use Types Packs/Day Years Used Date Smoking Tobacco: Never Assessed Sex and Gender Information Value Date Recorded Sex Assigned at Not on file 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
--- OUTSIDE RECORDS SUMMARY | 2024-10-21 08:46 | XMS_ITS | Encounter Summary ---
Author Organization [facility] Address [address] [place] [address] Care Team Providers Care Blister Rust Eradicator Name Role Phone [facility] Team 1 [place] Primary Care Provider [phone]- [phone] Encounter Details Date Type Department Care Team (Late st Contact Info) Description 10/13/2024 External Device Data [facility] ABSTRACTION Provider, Abstract NO ADDRESS ON FILE Social History Tobacco Use Types Packs/Day Years Used Date Smoking Tobacco: Former Cigarettes Smokeless Tobacco: Never Alcohol Use Standard Drinks/Week Comments Yes 3 (1 standard drink = 0.6 oz pur e alcohol) Feeling Safe Answer Date Recorded Are you in a relationship wi th someone who hurts you emotionally and/or physically? 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
--- OUTSIDE RECORDS SUMMARY | 2024-10-21 08:46 | XMS_ITS | Encounter Summary ---
Author Organization [facility] Address [address] [facility] [place] [address] Care Team Providers Care Wholesale Account Executive Name Role Phone Moises Vanegas MD Primary Care Provider [phone] Encounter Details Date Type Department Care Team (Latest Contact Info) Description 12/13/2005 Outpatient Historical [facility] Medicine-[facility] [place] [address] 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
--- OUTSIDE RECORDS SUMMARY | 2024-10-21 08:46 | XMS_ITS | Encounter Summary ---
Author Organization [facility] Address [address] [facility] [place] [place] [address] Care Team Providers Care Optical Sales Associate Name Role Phone Moises Vanegas MD Primary Care Provider -[phone] Encounter Details Date Type Department Care Team (Latest Contact Info) Description 08/10/2005 Outpatient Historical [facility] Medicine-[facility] [address] [place] [address] Mansi Munguia MD [address] [place] [address] Depressive Disorder, not Elsewhere Classified (Primary Dx); Acute Pharyngitis; Lumbago Social History Tobacco Use Types Packs/Day Years Used Date Smoking Tobacco: Never Assessed Sex and Gender Information Value Date Recorded Sex Assigned at Not on file 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
--- OUTSIDE RECORDS SUMMARY | 2024-10-21 08:46 | XMS_ITS | Encounter Summary ---
Author Organization [facility] Address [address] [facility] [place] [address] Care Team Providers Care Mold Filler Name Role Phone Moises Vanegas MD Primary Care Provider -[phone] Encounter Details Date Type Department Care Team (Late st Contact Info) Description 08/22/1998 Outpatient Historical [facility] Social History Tobacco Use Types Packs/Day Years Used Date Smoking Tobacco: Never Assessed Sex and Gender Information Value Date Recorded Sex Assigned at Not on file 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
--- OUTSIDE RECORDS SUMMARY | 2024-10-21 08:46 | XMS_ITS | Encounter Summary ---
Author Organization [facility] Address [address] [place] [address] Care Team Providers Care Wireless Sales Expert Name Role Phone Moises Vanegas MD Primary Care Provider -[phone] Encounter Details Date Type Department Care Team (Latest Contact Info) Description 01/23/2005 Outpatient Historical [facility] Medicine-[facility] [address] [place] [address] Richard Blancas, NO ADDRESS ON FILE JOINT PAIN-L/LEG (Primary Dx) Social History Tobacco Use Types Packs/Day Years Used Date Smoking Tobacco: Never Assessed Sex and Gender Information Value Date Recorded Sex Assigned at Not on file 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
--- OUTSIDE RECORDS SUMMARY | 2024-10-21 08:46 | XMS_ITS | Encounter Summary ---
Author Organization [facility] Address [address] [facility] [place] [address] Care Team Providers Care Hay Stacker Name Role Phone Moises Vanegas MD Primary Care Provider -[phone] Encounter Details Date Type Department Care Team (Latest Contact Info) Description 12/22/2002 Outpatient Historical [facility] [address] 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
--- OUTSIDE RECORDS SUMMARY | 2024-10-21 08:46 | XMS_ITS | Encounter Summary ---
Author Organization [facility] Address [address] [place] [address] Care Team Providers Care High School Admissions Representative Name Role Phone Moises Vanegas MD Primary Care Provider -[phone] Reason for Referral * Radiology Services (Routine) - Closed Specialty Diagnoses / Procedures Referred By Contac t Referred To Contact Diagnoses Disorder of sacrum Procedures XR FLUORO NEEDLE GUIDANCE SPINE Shawn Cordoba MD Phone: tel: fax: Referral ID Status Reason Start Date Expiration Date Visits Re quested Visits Authorized [id number] Closed 09/24/2018 10/25/2019 1 1 Encounter Details Date Type Department Care Team (Late st Contact Info) Description 09/24/2018 Ancillary Orders [facility] Pain Management Procedures [place] [address] [place] [address] [place] [address] [facility] [address] [place] [address] Disorder of sacrum Social History Tobacco Use Types Packs/Day Years Used Date Smoking Tobacco: Every Day Cigarettes 0.3 16 Smokeless Tobacco: Never Alcohol Use Standard Drinks/Week Comments No 14 (1 standard drink = 0.6 oz pu re alcohol) occ 2 drinks daily or less Sex and Gender Information Value Date Recorded Sex Assigned at Not on file Legal Sex Male 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 Exam was auto-finalized. Shawn Cordoba MD DIAGNOSTIC IMAGING ORDERABLES Final Result documented in this encounter Visit Diagnoses Diagnosis Disorder of sacrum Disorders of sacrum Disorder of sacrum Disorders of sacrum documented in this encounter Care Teams High School Admissions Representative Relationship Specialty Start Date End Date Moises Vanegas MD [phone] (Work) PCP - General Family Practice 01/27/20 documented as of this encounter
--- OUTSIDE RECORDS SUMMARY | 2024-10-21 08:46 | XMS_ITS | Encounter Summary ---
Author Organization [facility] Address [address] [place] [address] Care Team Providers Care Nurse Epidemiologist Name Role Phone Moises Vanegas MD Primary Care Provider [phone] Encounter Details Date Type Department Care Team (Latest Contact Info) Description 11/20/2001 Outpatient Historical [facility] Medicine-[facility] [address] 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
--- OUTSIDE RECORDS SUMMARY | 2024-10-21 08:46 | XMS_ITS | Encounter Summary ---
Author Organization [facility] Address [address] [facility] [place] [address] Care Team Providers Care Floor Framer Name Role Phone Moises Vanegas MD Primary Care Provider -[phone] Encounter Details Date Type Department Care Team (Late st Contact Info) Description 03/19/2003 Outpatient Historical [facility]rology- [place] [address] [facility] [address] 3rd [place] [address] Nitin Conrad MD [address] [address] TORSION OF TESTIS (Primary Dx) Social History Tobacco Use Types Packs/Day Years Used Date Smoking Tobacco: Never Assessed Sex and Gender Information Value Date Recorded Sex Assigned at Not on file Legal Sex Male 5:28 AM DIE REPAIR Gender Identity Not on file Sexual Orientation Not on file documented as of this encounter Plan of Treatment Not on file documented as of this encounter Visit Diagnoses Diagnosis Torsion of testis- Primary documented in this encounter Care Teams Floor Framer Relationship Specialty Start Date End Date Moises Vanegas MD [phone] (Work) PCP - General Family Practice 01/27/20 documented as of this encounter
--- OUTSIDE RECORDS SUMMARY | 2024-10-21 08:46 | XMS_ITS | Encounter Summary ---
Author Organization [facility] Address [address] [facility] [place] [address] Care Team Providers Care Letterer Name Role Phone Mosies Vanegas MD Primary Care Provider -[phone] Encounter Details Date Type Department Care Team (Latest Contact Info) Description 04/04/2006 Outpatient Historical [facility] Orthopedics- [address] [place] [address] Fausto Alba MD [address] [place] [address] Pain in Joint, Ankle and Foot (Primary Dx); Other Acquired Deformity of Toe Social History Tobacco Use Types Packs/Day Years Used Date Smoking Tobacco: Never Assessed Sex and Gender Information Value Date Recorded Sex Assigned at Not on file Legal Sex Male 5:28 AM TRANSPORT RN Gender Identity Not on file Sexual Orientation Not on file documented as of this encounter Plan of Treatment Not on file documented as of this encounter Visit Diagnoses Diagnosis Pain in joint, ankle and foot- Primary Other acquired deformity of toe documented in this encounter Care Teams Letterer Relationship Specialty Start Date End Date Moises Vanegas MD [phone] (Work) PCP - General Family Practice 01/27/20 documented as of this encounter
--- OUTSIDE RECORDS SUMMARY | 2024-10-21 08:46 | XMS_ITS | Encounter Summary ---
Author Organization [facility] Address [address] [facility] [place] [address] Care Team Providers Care Ring Making Machine Operator Name Role Phone Moises aVnegas MD Primary Care Provider -[phone] Encounter Details Date Type Department Care Team (Latest Contact Info) Description 01/06/2001 Outpatient Historical [facility] [address] [place] [address] Mansi Munguia MD [address] [place] [address] HERPETIC FLYNN (Primary Dx); TORSION OF TESTIS Social History Tobacco Use Types Packs/Day Years Used Date Smoking Tobacco: Never Assessed Sex and Gender Information Value Date Recorded Sex Assigned at Not on file Legal 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
--- OUTSIDE RECORDS SUMMARY | 2024-10-21 08:46 | XMS_ITS | Encounter Summary ---
Author Organization [employer] [facility] Address [address] [facility] [place] [address] Care Team Providers Care Hand Tapper Name Role Phone Moises Vanegas MD Primary Care Provider -[phone] Encounter Details Date Type Department Care Team (Late st Contact Info) Description 08/30/1998 Outpatient Historical [facility] Social History Tobacco Use Types Packs/Day Years Used Date Smoking Tobacco: Never Assessed Sex and Gender Information Value Date Recorded Sex Assigned at Not on file Legal Sex Male 5:28 AM MATCH UP PERSON Gender Identity Not on file Sexual Orientation Not on file documented as of this encounter Plan of Treatment Not on file documented as of this encounter Visit Diagnoses Not on filedocumented in this encounter Care Teams Hand Tapper Relationship Specialty Start Date End Date Moises Vanegas MD [phone] (Work) PCP - General Family Practice 01/27/20 documented as of this encounter
--- OUTSIDE RECORDS SUMMARY | 2024-10-21 08:46 | XMS_ITS | Encounter Summary ---
Author Organization [facility] Address [address] [place] [address] Care Team Providers Care Industrial Technician Name Role Phone Moises Vanegas MD Primary Care Provider -[phone] Reason for Referral * Outpatient Services (Routine) - Closed Specialty Diagnoses / Procedures Referred By Evelio encinas Referred To Contact Diagnoses Lumbosacral radiculitis Procedures XR FLUORO NEEDLE GUIDANCE Iam Denise MD Referral ID Status Reason Start Date Expiration Date Visits Re quested Visits Authorized [id number] Closed 04/04/2015 05/04/2016 1 1 ITY TECHNICIAN Encounter Details Date Type Department Care Team (Late st Contact Info) Description 04/04/2015 Ancillary Orders [facility] Pain Management Procedures [place] [address] [facility] [place] [address] Iam Denise MD NO ADDRESS ON FILE Lumbosacral radiculitis (Primary Dx) Social History Tobacco Use Types Packs/Day Years Used Date Smoking Tobacco: Every Day Cigarettes 0.5 16 Smokeless Tobacco: Never Alcohol Use Standard Drinks/Week Comments Yes 14 (1 standard drink = 0.6 oz pu re alcohol) occ 2 drinks daily or less Sex and Gender Information Value Date Recorded Sex Assigned at Not on file Legal Sex Male 5:28 AM QUALITY TECHNICIAN Gender Identity Not on file Sexual Orientation Not on file Occupation Industry Job Start Date Job End Date Not on file Not on file Not on file Not on file documented as of this encounter Plan of Treatment Not on file documented as of this encounter Results * XR FLUORO NEEDLE GUIDANCE (04/04/2015 9:21 AM QUALITY TECHNICIAN) Narrative Fabiola Rowan, RT - 04/04/2015 9:22 AM QUALITY TECHNICIAN Order information only. Exam was auto-finalized. us Iam Denise MD DIAGNOSTIC IMAGING ORDERAB LES Final Result documented in this encounter Visit Diagnoses Diagnosis Lumbosacral radiculitis- Primary Thoracic or lumbosacral neuritis or radiculitis, unspecified Lumbosacral radiculitis Thoracic or lumbosacral neuritis or radiculitis, unspecified documented in this encounter Care Teams Industrial Technician Relationship Specialty Start Date End Date Moises Vanegas MD [phone] (Work) PCP - General Family Practice 01/27/20 documented as of this encounter
--- OUTSIDE RECORDS SUMMARY | 2024-10-21 08:46 | XMS_ITS | Encounter Summary ---
Author Organization [facility] Address [address] [place] [address] Care Team Providers Care Ferryboat Helper Name Role Phone Moises Vanegas MD Primary Care Provider -[phone] Encounter Details Date Type Department Care Team (Latest Contact Info) Description 05/10/2006 Outpatient Historical [facility] [address] [place] [address] Fausto Alba MD [address] [place] [address] Other Disorders of Bone and Cartilage (Primary Dx) Social History Tobacco Use Types Packs/Day Years Used Date Smoking Tobacco: Never Assessed Sex and Gender Information Value Date Recorded Sex Assigned at Not on file Legal Sex Male 5:28 AM HAND QUILTER Gender Identity Not on file Sexual Orientation Not on file documented as of this encounter Plan of Treatment Not on file documented as of this encounter Visit Diagnoses Diagnosis Other disorders of bone and cartilage(733.99)- Primary Other disorders of bone and cartilage documented in this encounter Care Teams Ferryboat Helper Relationship Specialty Start Date End Date Moises Vanegas MD [phone] (Work) PCP - General Family Practice 01/27/20 documented as of this encounter
--- OUTSIDE RECORDS SUMMARY | 2024-10-21 08:46 | XMS_ITS | Encounter Summary ---
Author Organization [facility] Address [address] [facility] [place] [address] Care Team Providers Care Healthcare Economics Manager Name Role Phone Moises Vanegas MD Primary Care Provider -[phone] Encounter Details Date Type Department Care Team (Latest Contact Info) Description 04/04/2006 Outpatient Historical [facility] [address] [place] [address] Stephane Pablo MD NO ADDRESS ON FILE Chronic Rhinitis (Primary Dx) Social History Tobacco Use Types Packs/Day Years Used Date Smoking Tobacco: Never Assessed Sex and Gender Information Value Date Recorded Sex Assigned at Not on file Legal Sex Male 5:28 AM TATTOOER Gender Identity Not on file Sexual Orientation Not on file documented as of this encounter Plan of Treatment Not on file documented as of this encounter Visit Diagnoses Diagnosis Chronic rhinitis- Primary documented in this encounter Care Teams Healthcare Economics Manager Relationship Specialty Start Date End Date Moises Vanegas MD [phone] (Work) PCP - General Family Practice 01/27/20 documented as of this encounter
--- OUTSIDE RECORDS SUMMARY | 2024-10-21 08:46 | XMS_ITS | Encounter Summary ---
Author Organization [facility] Address [address] [facility] [address] Care Team Providers Care Nurseryman Assistant Name Role Phone Moises Vanegas MD Primary Care Provider -[phone] Encounter Details Date Type Department Care Team (Late st Contact Info) Description 04/08/2007 Outpatient Historical [facility] [address] [place] [address] Mansi Munguia MD [address] [place] [address] Social History Tobacco Use Types Packs/Day Years Used Date Smoking Tobacco: Never Assessed Sex and Gender Information Value Date Recorded Sex Assigned at Not on file Legal Sex Male 5:28 AM MARINE FITTER Gender Identity Not on file Sexual Orientation Not on file documented as of this encounter Plan of Treatment Not on file documented as of this encounter Procedures Procedure Name Priority Date/Time Associated Diagnosis Comments STREPTOCOCCUS GROUP A CULTURE Routine 04/08/2007 6:05 PM MARINE FITTER documented in this encounter Results * STREPTOCOCCUS GROUP A THROAT CULTURE (04/08/2007 6:05 PM MARINE FITTER) STREP PLATE CULTURE SPECIMEN DESCRIPTION: THROAT SPECIAL REQUESTS: NONE CULTURE: NO GROUP A BETA HEMOLYTIC STREPTOCOCCI ISOLATED REPORT STATUS: FINAL [id number] [facility] SUSCEPTIBILITY PERFORMED ON NOBS [facility] 04/08/2007 6:05 PM MARINE FITTER 04/08/2007 6:05 PM MARINE FITTER us Mansi Munguia MD MICROBIOLOGY - GENERAL ORD ERABLES Final Result [facility] CLIA# [id number] [address] [place] [address] documented in this encounter Visit Diagnoses Not on filedocumented in this encounter Care Teams Nurseryman Assistant Relationship Specialty Start Date End Date Moises Vanegas MD [phone] (Work) PCP - General Family Practice 01/27/20 documented as of this encounter
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
--- OUTSIDE RECORDS SUMMARY | 2024-10-21 08:46 | XMS_ITS | Encounter Summary ---
Author Organization [facility] Address [address] [place] [address] Care Team Providers Care Erosion Control Specialist Name Role Phone Moises Vanegas MD Primary Care Provider -[phone] Reason for Referral * Radiology Services (Routine) - Closed Specialty Diagnoses / Procedures Referred By Contac t Referred To Contact Diagnoses SI (sacroiliac) pain Procedures XR FLUORO NEEDLE GUIDANCE SPINE Shawn Cordoba MD Phone: tel: fax: Referral ID Status Reason Start Date Expiration Date Visits Re quested Visits Authorized [id number] Closed 12/25/2017 01/25/2019 1 1 LE E BUSINESS DEVELOPER Encounter Details Date Type Department Care Team (Late st Contact Info) Description 12/25/2017 Ancillary Orders [facility] [place] [address] [place] [address] [place] [address] [facility] [address] [place] [address] SI (sacroiliac) pain Social History Tobacco Use Types Packs/Day Years Used Date Smoking Tobacco: Every Day Cigarettes 0.3 16 Smokeless Tobacco: Never Alcohol Use Standard Drinks/Week Comments No 14 (1 standard drink = 0.6 oz pu re alcohol) occ 2 drinks daily or less Sex and Gender Information Value Date Recorded Sex Assigned at Not on file Legal Sex Male 5:28 AM ORACLE E BUSINESS DEVELOPER Gender Identity Not on file Sexual Orientation Not on file Occupation Industry Job Start Date Job End Date Not on file Not on file Not on file Not on file documented as of this encounter Plan of Treatment Not on file documented as of this encounter Results * XR FLUORO NEEDLE GUIDANCE SPINE (12/25/2017 12:25 PM ORACLE E BUSINESS DEVELOPER) Narrative 12/25/2017 12:25 PM ORACLE E BUSINESS DEVELOPER Order information only. Exam was auto-finalized. Shawn Cordoba MD DIAGNOSTIC IMAGING ORDERABLES Final Result documented in this encounter Visit Diagnoses Diagnosis SI (sacroiliac) pain Disorders of sacrum SI (sacroiliac) pain Disorders of sacrum documented in this encounter Care Teams Erosion Control Specialist Relationship Specialty Start Date End Date Moises Vanegas MD [phone] (Work) PCP - General Family Practice 01/27/20 documented as of this encounter
--- OUTSIDE RECORDS SUMMARY | 2024-10-21 08:46 | XMS_ITS | Encounter Summary ---
Author Organization [facility] Address [address] [place] [address] Care Team Providers Care Quality Associate Name Role Phone Moises Vanegas MD Primary Care Provider -[phone] Reason for Referral * Outpatient Services (Routine) - Closed Specialty Diagnoses / Procedures Referred By Contac t Referred To Contact Diagnoses Pain in unspecified foot Procedures NM BONE SCAN LIMITED AREA Nhi Rao MD Phone: tel: fax: [facility] CALL TO MAKE APPOINTMENT ONLY [address] [place] [address] Phone: tel: fax: Referral ID Status Reason Start Date Expiration Date V isits Requested Visits Authorized [id number] Closed [facility] TO SCHEDULE (SGF) 08/18/2015 11/16/2015 2 2 Encounter Details Date Type Department Care Team (Latest Contact Info) Description 08/05/2015 Ancillary Orders [facility] CALL TO MAKE APPOINTMENT ONLY [address] [place] [address] Nhi Rao MD [address] [place] [address] Pain in unspecified foot (Primary Dx) Social History Tobacco Use Types Packs/Day Years Used Date Smoking Tobacco: Every Day Cigarettes 0.3 16 Smokeless Tobacco: Never Alcohol Use Standard Drinks/Week Comments No 14 (1 standard drink = 0.6 oz pu re alcohol) occ 2 drinks daily or less Sex and Gender Information Value Date Recorded Sex Assigned at Not on file 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 Incidental findings in the left forefoot consistent with lateral sesamoid bone inflammation/sesamoiditis. This laboratory has been accredited by the Intersocietal Commission for the Accreditation of Nuclear Medicine Laboratories (IAC Nuclear/PET). Narrative 08/18/2015 12:59 PM CDT Radionuclide Bone Imaging, Limited Examination: Radiopharmaceutical: Tc-99m HDP ([id number]) Dose: 20.5 mCi IV Reason for Consultation: Right lateral mid foot and heel pain for evaluation: Possible occult/stress fracture The quality of this examination is acceptable with regards to count density, processed images, data display and lack of important artifacts (including but not limited to motion and attenuation artifacts). There are no previous examinations for comparison. Osseous phase imaging was obtained over the distal lower extremities at 2.5 hours trauma following tracer injection. There is no abnormal focus of tracer accumulation in the right foot. Specifically, there is no focal increase of osseous turnover in the region of the right cuboid. There is fairly intense increase of osseous turnover in the left lateral sesamoid bone. Procedure Note Mickey Ramon MD - 08/18/2015 Radionuclide Bone Imaging, Limited Examination: Radiopharmaceutical: Tc-99m HDP ([id number]) Dose: 20.5 mCi IV Reason for Consultation: Right lateral mid foot and heel pain for evaluation: Possible occult/stress fracture The quality of this examination is acceptable with regards to count density, processed images, data display and lack of important artifacts (including but not limited to motion and attenuation artifacts). There are no previous examinations for comparison. Osseous phase imaging was obtained over the distal lower extremities at 2.5 hours trauma following tracer injection. There is no abnormal focus of tracer accumulation in the right foot. Specifically, there is no focal increase of osseous turnover in the region of the right cuboid. There is fairly intense increase of osseous turnover in the left lateral sesamoid bone. IMPRESSION IMPRESSION: Abnormal examination negative for an acute injury of the right cuboid. Incidental findings in the left forefoot consistent with lateral sesamoid bone inflammation/sesamoiditis. This laboratory has been accredited by the Intersocietal Commission for the Accreditation of Nuclear Medicine Laboratories (IAC Nuclear/PET). us Nhi Rao MD NM ORDERABLES Final Result documented in this encounter Visit Diagnoses Diagnosis Pain in unspecified foot- Primary Pain in unspecified foot documented in this encounter Care Teams Quality Associate Relationship Specialty Start Date End Date Moises Vanegas MD [phone] (Work) PCP - General Family Practice 01/27/20 documented as of this encounter
--- OUTSIDE RECORDS SUMMARY | 2024-10-21 08:46 | XMS_ITS | Encounter Summary ---
Author Organization [facility] Address [address] [facility] [place] [address] Care Team Providers Care Hospitality Workers Name Role Phone Moises Vanegas MD Primary Care Provider -[phone] Encounter Details Date Type Department Care Team (Latest Contact Info) Description 03/06/2002 Outpatient Historical [facility] Medicine-[facility] [address] 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
--- OUTSIDE RECORDS SUMMARY | 2024-10-21 08:46 | XMS_ITS | Encounter Summary ---
Author Organization [facility] Address [address] [place] [address] Care Team Providers Care Manager Insurance Name Role Phone Moises Vanegas MD Primary Care Provider -[phone] Encounter Details Date Type Department Care Team (Late st Contact Info) Description 02/24/2007 Outpatient Historical [facility] Medicine-[facility] [address] 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
--- OUTSIDE RECORDS SUMMARY | 2024-10-21 08:46 | XMS_ITS | Encounter Summary ---
Author Organization [facility] Address [address] [place] [address] Care Team Providers Care Fitness Services Manager Name Role Phone Moises Vanegas MD Primary Care Provider [phone] Encounter Details Date Type Department Care Team (Latest Contact Info) Description 04/30/2001 Outpatient Historical [facility] Medicine-[facility] [address] [place] [phone] Richard Blancas, NO ADDRESS ON FILE ACUTE SINUSITIS NOS (Primary Dx) Social History Tobacco Use Types Packs/Day Years Used Date Smoking Tobacco: Never Assessed Sex and Gender Information Value Date Recorded Sex Assigned at Not on file 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
--- OUTSIDE RECORDS SUMMARY | 2024-10-21 08:46 | XMS_ITS | Encounter Summary ---
Author Organization [facility] Address [address] [place] [place] [address] Care Team Providers Care Cashiers Bussers Food Runners Name Role Phone Moises Vanegas MD Primary Care Provider -[phone] Encounter Details Date Type Department Care Team (Latest Contact Info) Description 01/24/2005 Outpatient Historical [facility] Podiatry-[facility] [place] [address] [place] [address] Luigi Johnson DPM NO ADDRESS ON FILE TENOSYNOVITIS FOOT/ANKLE (Primary Dx); PRIMARY FOCAL HYPERHIDROSIS Social History Tobacco Use Types Packs/Day Years Used Date Smoking Tobacco: Never Assessed Sex and Gender Information Value Date Recorded Sex Assigned at Not on file 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
--- OUTSIDE RECORDS SUMMARY | 2024-10-21 08:46 | XMS_ITS | Encounter Summary ---
Author Organization [facility] Address [address] [facility] [address] [place] [address] Care Team Providers Care Frame Table Operator Name Role Phone Moises Vanegas MD Primary Care Provider -[phone] Encounter Details Date Type Department Care Team (Latest Contact Info) Description 10/04/2005 Outpatient Historical [facility] Medicine-[facility] [address] 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
--- OUTSIDE RECORDS SUMMARY | 2024-10-21 08:46 | XMS_ITS | Encounter Summary ---
Author Organization [facility] Address [address] [place] [address] Care Team Providers Care Tumblers Supervisor Name Role Phone Moises Vanegas MD Primary Care Provider [phone] Encounter Details Date Type Department Care Team (Late st Contact Info) Description 05/29/2005 Outpatient Historical [facility] Imaging Services-[facility] [place] [address] [place] [phone] Ravi Thompson MD 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
--- OUTSIDE RECORDS SUMMARY | 2024-10-21 08:46 | XMS_ITS | Encounter Summary ---
Author Organization [facility] Address [address] [place] [address] Care Team Providers Care Chair Car Driver Name Role Phone Moises Vanegas MD Primary Care Provider -[phone] Encounter Details Date Type Department Care Team (Latest Contact Info) Description 11/09/2005 Outpatient Historical [facility] Family Medicine-[facility] [address] [place] [address] Mansi Munguia MD [address] [place] [address] Routine Medical Exam (Primary Dx); Other Specified Affective Psychoses Social History Tobacco Use Types Packs/Day Years Used Date Smoking Tobacco: Never Assessed Sex and Gender Information Value Date Recorded Sex Assigned at Not on file Legal 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
--- OUTSIDE RECORDS SUMMARY | 2024-10-21 08:46 | XMS_ITS | Encounter Summary ---
Author Organization [facility] Address [address] [place] [address] Care Team Providers Care Enterprise Infrastructure Architect Name Role Phone Moises Vanegas MD Primary Care Provider -[phone] Encounter Details Date Type Department Care Team (Latest Contact Info) Description 02/25/2006 Outpatient Historical [facility] Family Medicine-[facility] [place] [address] [place] [address] Mansi Munguia MD [address] [place] [address] Depressive Disorder, not Elsewhere Classified (Primary Dx); Atrial Fibrillation (CMS/HCC); Allergic Rhinitis, Cause Unspecified Social History Tobacco Use Types Packs/Day Years Used Date Smoking Tobacco: Never Assessed Sex and Gender Information Value Date Recorded Sex Assigned at Not on file Legal Sex Male 5:28 AM HURL SHAKER Gender Identity Not on file Sexual Orientation Not on file documented as of this encounter Plan of Treatment Not on file documented as of this encounter Visit Diagnoses Diagnosis Depressive disorder, not elsewhere classified- Primary Atrial fibrillation (CMS/HCC) Atrial fibrillation Allergic rhinitis, cause unspecified documented in this encounter Care Teams Enterprise Infrastructure Architect Relationship Specialty Start Date End Date Moises Vanegas MD [phone] (Work) PCP - General Family Practice 01/27/20 documented as of this encounter
--- OUTSIDE RECORDS SUMMARY | 2024-10-21 08:46 | XMS_ITS | Encounter Summary ---
Author Organization [facility] Address [address] [facility] [place] [address] Care Team Providers Care Transport Truck Driver Name Role Phone Moises Vanegas MD Primary Care Provider -[phone] Encounter Details Date Type Department Care Team (Latest Contact Info) Description 05/17/2005 Outpatient Historical [facility] Medicine-[facility] [address] [place] [address] Mansi Munguia MD [address] [place] [address] Acute Pharyngitis (Primary Dx); Other Specified Disease of White Blood Cells Social History Tobacco Use Types Packs/Day Years Used Date Smoking Tobacco: Never Assessed Sex and Gender Information Value Date Recorded Sex Assigned at Not on file 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
--- OUTSIDE RECORDS SUMMARY | 2024-10-21 08:46 | XMS_ITS | Encounter Summary ---
Author Organization [facility] Address [address] [facility] [place] [address] Care Team Providers Care Manager Mortgage Name Role Phone Moises Vanegas MD Primary Care Provider -[phone] Encounter Details Date Type Department Care Team (Latest Contact Info) Description 05/11/2005 Outpatient Historical [facility] Family Medicine-[facility] [place] [address] [place] [address] Mansi Munguia MD [address] [place] [address] Depressive Disorder, not Elsewhere Classified (Primary Dx); Insomnia, Unspecified Social History Tobacco Use Types Packs/Day Years Used Date Smoking Tobacco: Never Assessed Sex and Gender Information Value Date Recorded Sex Assigned at Not on file 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
--- OUTSIDE RECORDS SUMMARY | 2024-10-21 08:46 | XMS_ITS | Encounter Summary ---
Author Organization [facility] Address [address] [facility] [place] [address] Care Team Providers Care Trustee Of Estate Name Role Phone Moises Vanegas MD Primary Care Provider -[phone] Encounter Details Date Type Department Care Team (Latest Contact Info) Description 02/16/2003 Outpatient Historical [facility] Medicine-[facility] [address] 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
--- OUTSIDE RECORDS SUMMARY | 2024-10-21 08:46 | XMS_ITS | Encounter Summary ---
Author Organization [facility] Address [address] [facility] [place] [address] Care Team Providers Care Security Systems Integrator Name Role Phone Moises Vanegas MD Primary Care Provider -[phone] Encounter Details Date Type Department Care Team (Latest Contact Info) Description 01/25/2003 Outpatient Historical [facility] Medicine-[facility] [address] 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
--- OUTSIDE RECORDS SUMMARY | 2024-10-21 08:46 | XMS_ITS | Encounter Summary ---
Author Organization [facility] Address [address] [place] [address] Care Team Providers Care Distribution Center Associate Name Role Phone Moises Vanegas MD Primary Care Provider -[id number] Reason for Referral * Outpatient Services (Routine) - Closed Specialty Diagnoses / Procedures Referred By Contac t Referred To Contact Diagnoses Lumbago with sciatica, right side Procedures MRI LUMBAR WO CONTRAST Nitin Madden MD Phone: tel: fax: [facility] CALL TO MAKE APPOINTMENT ONLY [address] [place] [address] Phone: tel: fax: Referral ID Status Reason Start Date Expiration Date V isits Requested Visits Authorized [id number] Closed [facility] TO SCHEDULE (SGF) 01/11/2015 04/12/2015 1 1 HERMAL POWERPLANT MECHANIC HELPER Encounter Details Date Type Department Care Team (Latest Contact Info) Description 01/04/2015 Ancillary Orders [facility] CALL TO MAKE APPOINTMENT ONLY [address] [place] [address] Nitin Madden MD [address] [place] [address] Lumbago with sciatica, right side (Primary Dx) Social History Tobacco Use Types Packs/Day Years Used Date Smoking Tobacco: Every Day Cigarettes 1 16 Smokeless Tobacco: Never Alcohol Use Standard Drinks/Week Comments Yes 2.5 (1 standard drink = 0.6 oz p ure alcohol) occ Sex and Gender Information Value Date Recorded Sex Assigned at Not on file Legal Sex Male 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 Exam: MRI LUMBAR WO CONTRAST Date/Time of Exam: Jan 27, 2015 09:55:36 AM Reason For Exam: Lumbago with sciatica, right side. Technique: MRI of the lumbar spine was performed without the administration of intravenous contrast. Alignment is normal and no acute fracture or significant focal bony lesion is seen. L1-L2 through L3-L4: Unremarkable. L4-L5: Tiny disc bulge and mild right facet arthrosis. L5-S1: Right subarticular disc protrusion which appears to compress upon the right S1 nerve root. Impression: Right-sided disc protrusion at L5-S1 which appears to compress upon the right S1 nerve root. MICHOACANO/alexsander 1128 AM - uploaded from [employer] - Narrative Procedure Note Nitin Gerber MD - 01/27/2015 IMPRESSION IMPRESSION: See report below. Exam: MRI LUMBAR WO CONTRAST Date/Time of Exam: Jan 27, 2015 09:55:36 AM Reason For Exam: Lumbago with sciatica, right side. Technique: MRI of the lumbar spine was performed without the administration of intravenous contrast. Alignment is normal and no acute fracture or significant focal bony lesion is seen. L1-L2 through L3-L4: Unremarkable. L4-L5: Tiny disc bulge and mild right facet arthrosis. L5-S1: Right subarticular disc protrusion which appears to compress upon the right S1 nerve root. Impression: Right-sided disc protrusion at L5-S1 which appears to compress upon the right S1 nerve root. MICHOACANO/alexsander 1128 AM - uploaded from [employer] - us Nitin Madden MD MR ORDERABLES Final Result documented in this encounter Visit Diagnoses Diagnosis Lumbago with sciatica, right side- Primary Lumbago with sciatica, right side documented in this encounter Care Teams Distribution Center Associate Relationship Specialty Start Date End Date Moises Vanegas MD [phone] (Work) PCP - General Family Practice 01/27/20 documented as of this encounter
--- OUTSIDE RECORDS SUMMARY | 2024-10-21 08:46 | XMS_ITS | Encounter Summary ---
Author Organization [facility] Address [address] [place] [address] Care Team Providers Care Software Specialist Name Role Phone Moises Vanegas MD Primary Care Provider -[phone] Encounter Details Date Type Department Care Team (Latest Contact Info) Description 11/22/2006 Outpatient Historical [facility] Medicine-[facility] [place] [address] 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
--- OUTSIDE RECORDS SUMMARY | 2024-10-21 08:46 | XMS_ITS | Clinical Summary ---
Author Organization [facility] Address [address] [place] [address] Care Team Providers Care Turn Down Attendant Name Role Phone Moises Vanegas MD Primary Care Provider [phone] Allergies Active Allergy Reactions Criticality Noted Date Comments Varenicline Other (See Comments) 03/04/2008 Depression, suicidal thoughts Medications gabapentin (NEURONTIN) 300 mg capsule Take 1 Capsule (300 mg) by mouth 3 times daily. 90 Capsule 1 6 Active famotidine (PEPCID) 40 mg tablet Take 40 mg by mouth daily. Active tamsulosin (FLOMAX) 0.4 mg capsule Take 0.4 mg by mouth daily. Active fenofibrate nanocrystallized (TRICOR) 145 mg tablet Take 145 mg by mouth daily. Active fish oil-omega-3 fatty acids 340-1,000 mg Capsule Take 2 Capsules by mouth daily. Active fluticasone propionate (FLONASE) 50 mcg/spray [place], Suspension nasal inhaler 0 Active ProAir HFA 90 mcg/actuation inhaler 0 Active Symbicort 80-4.5 mcg/actuation HFA Aerosol Inhaler 0 Active montelukast (SINGULAIR) 10 mg tablet 0 Active metoprolol tartrate (LOPRESSOR) 100 mg tablet 100 mg 2 times daily. 0 Active tadalafiL (CIALIS) 20 mg tablet 0 Active aspirin (ECOTRIN EC) 81 mg Tablet, Delayed Release (E.C.) TAKE ONE TABLET BY MOUTH ONCE DAILY 9 Active amitriptyline (ELAVIL) 25 mg tablet Take 25 mg by mouth daily at bedtime. Active clonazePAM (KlonoPIN) 0.5 mg Tablet Take 0.5 mg by mouth 3 times daily. 0 Active venlafaxine (EFFEXOR XR) 75 mg Extended Release 24 hour capsule Take 150 mg by mouth 2 times daily. 0 Active psyllium husk, with sugar, (METAMUCIL) 3.4 gram/7 gram Powder DISSOLVE 15 ML IN WATER OR JUICE & DRINK ONCE DAILY - FOR BOWELS. 0 Active Active Problems Problem Noted Date Diagnosed Date FRANK on CPAP 03/04/2019 GERD (gastroesophageal reflux disease) 0 COPD (chronic obstructive pulmonary disease) Anxiety 03/04/2019 BPH (benign prostatic hyperplasia) 03/04/2019 Sacroiliitis 03/04/2019 Preoperative general physical examination 2019 Severe obesity (BMI 35.0-39.9) with comorbidity 03/04/2019 Injury of finger of left hand 11/05/2015 Tenosynovitis of right foot 08/01/2015 Idiopathic peripheral neuropathy 08/01/2015 Lumbar epidural mass 05/04/2015 Ganglioneuroma 05/04/2015 Lumbar disc herniation with radiculopathy 2015 Tobacco use 02/23/2015 Essential hypertension 08/17/2013 Paroxysmal atrial fibrillation 08/17/2013 Dyslipidemia 08/17/2013 Leukocytosis 08/17/2013 Anal fistula 10/26/2010 Headache(784.0) 10/12/2008 Depression 04/09/2008 Resolved Problems Problem Noted Date Diagnosed Date Resolved Date Sore throat 04/09/2008 04/09/2008 Immunizations Immunization Administration Dates Next Due Influenza Seasonal Unspecified Formulation IM Family History Medical History Relation Name Comments High Cholesterol Brother Maximus Jody Hypertension Brother Maximus Vera Alive Healthy Daughter High Cholesterol Father Jf Vera Alive Cancer Maternal Grandfather Jayson Amaro Lung Ca ncer Colon Cancer Maternal Grandmother Kenzie Amaro at 78 High Cholesterol Mother Denise Bean Alive Colon Cancer Paternal Grandmother No Known Problems Sister 1 No Known Problems Sister 2 Other Sister 3 migraine Healthy Son Trinh Vera Healthy Relation Name Status Comments Brothmonty Vera Alive Daughter Alive Father Jf Vera Alive Maternal Grandfather Jayson Amaro Maternal Grandmother Kenzie Amaro Mother Denise Bean Alive Paternal Grandmother Sister 1 Alive Sister 2 Alive Sister 3 Alive Son Trinh Vera Alive Social History Tobacco Use Types Packs/Day Years Used Date Smoking Tobacco: Every Day Cigarettes 1 26 Smokeless Tobacco: Never Alcohol Use Standard Drinks/Week Comments No 0 (1 standard drink = 0.6 oz pur e alcohol) Sex and Gender Information Value Date Recorded Sex Assigned at Not on file Legal Sex 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 Gender Identity Not on file Sexual Orientation Not on file Occupation Industry Job Start Date Job End Date Not on file Not on file Not on file Not on file Last Filed Vital Signs Vital Sign Reading Time Taken Comments Blood Pressure 110/60 03/02/2020 10:36 AM CHIEF CONSOLE OPERATOR Pulse 92 03/02/2020 10:36 AM CHIEF CONSOLE OPERATOR Temperature 36.8 C (98.2 F) 01/20/2020 11:50 AM CHIEF CONSOLE OPERATOR Respiratory Rate 20 01/20/2020 12:45 PM CHIEF CONSOLE OPERATOR Oxygen Saturation 97% 03/02/2020 10:36 AM CHIEF CONSOLE OPERATOR Inhaled Oxygen Concentration - - Weight 124.7 kg (275 lb) 03/02/2020 10:36 AM CHIEF CONSOLE OPERATOR Height 180.3 cm (5' 11 ) 03/02/2020 10:36 AM CHIEF CONSOLE OPERATOR Body Mass Index 38.35 03/02/2020 10:36 AM CHIEF CONSOLE OPERATOR Plan of Treatment Health Maintenance Due Date Last Done Comments Pre-Diabetes and Diabetes Screening 1975 HEPATITIS B VACCINES (1 of 3 - 19+ 3-dose series) 1994 FIT-DNA Q 3 years 2020 FIT/FOBT Q 1 year 2020 Flex Sig/CT Colonography Q 5 years 2020 DTAP/TDAP/TD VACCINES (2 - Td or Tdap) 02/11/2023 INFLUENZA VACCINE (#1) 2024 12/03/2019, 2014 COLORECTAL SCREENING 10/20/2029 10/21/2019, 09/09/20 20 Colorectal Cancer Screening 10/20/2029 Medical Devices Implanted Type Area Business Law Instructor Device Identifier Shelf Expiration Date Model / Serial / Lot Hemostatic Gelfoam Powder 1gm [id number] - [id number] Implanted:Qty: 1 on 05/03/2015 by Edmundo Haq MD at [facility] Hemostatic N/A: Spine Lumbar PFIZER- PHARM 12/11/2017 [id number] / / [id number] Hemostatic Gelfoam Spng 12-7mm [id number] - Csc - [id number] Implanted:Qty: 1 on 05/03/2015 by Edmundo Haq MD at [facility] Hemostatic N/A: Spine Lumbar PFIZER- PHARM 03/13/2017 [id number] / / [id number] Pin Vidhi 3.2mm [id number] - [id number] Implanted:Qty: 1 on 04/06/2019 by Edmundo Haq MD at [facility] Pin N/A: Spine Lumbar [employer] 04/06/2119 [id number] / / [id number] IN-02 Pin Vidhi 3.2mm [id number] - [id number] Implanted:Qty: 1 on 04/06/2019 by Edmundo Haq MD at [facility] Pin N/A: Spine Lumbar [employer] 04/06/2119 [id number] / / [id number] IN-02 Pin Vidhi 3.2mm [id number] - [id number] Implanted:03/15 by Edmundo Haq MD at [facility] (Quantity not on file) Pin N/A: Spine Lumbar [employer] 04/06/2119 [id number] / / [id number] IN-02 Ifuse 7x40mm 7040m-90 - [id number] Implanted:03/15 by Edmundo Haq MD at [facility] (Quantity not on file) Spine N/A: Spine Lumbar [employer] 09/16/2023 7040M-90 / / [id number] Ifuse 7x45mm 7045m-90 - [id number] Implanted:03/15 by Edmundo Haq MD at [facility] (Quantity not on file) Spine N/A: Spine Lumbar [employer] 12/31/2023 7045M-90 / / [id number] Ifuse 7x50mm 7050m-90 - [id number] Implanted:Qty: 1 on 04/06/2019 by Edmundo Haq MD at [facility] Spine N/A: Spine Lumbar [employer] 12/11/2023 7050M-90 / / [id number] Explanted Type Area Business Law Instructor Device Identifier Shelf Expiration Date Model / Serial / Lot Bone Screw Explanted:Qty: 1 on 05/27/2008 at [facility] Left: Ankle Procedures Procedure Name Priority Date/Time Associated Diagnosis Comments COLONOSCOPY REPORT 10/21/2019 10 :36 AM CDT from Last 3 Months or Most Recently Relevant to Health Maintenance Results * COLONOSCOPY REPORT (10/21/2019 10:36 AM CDT) Narrative Procedure Note Robson Fox MD - 10/21/2019 10:35 AM CDT [facility] GI Patient Name: Bobo Vera Procedure Date: 10/21/2019 Date of : [...] satisfactory condition to undergo the procedure. - Pauline Protocol: - Pre-procedure Verification: Prior to the [...] 10:19:53 AM Scope Out: 10:32:04 AM [address] [place], [place] Robson Fox MD GI PROCEDURE ORDERABL ES Final Result from Last 3 Months or Most Recently Relevant to Health Maintenance Insurance * Guarantor: Bobo Vera Account Type Relation to Patient Date of Phone Billing Address Personal/Family Self 1975 [phone] (Work) [address] [place] [address] [facility] [employer] [place] [employer] [employer] * Guarantor: Bobo Vera Account Type Relation to Patient Date of Phone Billing Address Personal/Family Self 1975 [phone] (Work) [address] [place] [address] [facility] [employer] Advance Directives For more information, please contact: [phone] Documents on File Type Date Recorded Patient Immigration Paralegal Expl anation Advance Directive POA 05/06/2015 10:51 AM Advance Directive POA * Full Code (Latest Code Status on File) Date Activated Date Inactivated Comments 10/21/2019 9:50 AM 10/22/2019 2:04 AM * Full Code Date Activated Date Inactivated Comments 04/06/2019 6:38 AM 04/07/2019 12:58 PM * Full Code Date Activated Date Inactivated Comments 04/06/2019 5:32 AM 04/06/2019 6:38 AM * Full Code Date Activated Date Inactivated Comments 05/03/2015 3:22 PM 05/04/2015 7:27 PM * Full Code Date Activated Date Inactivated Comments 08/17/2013 4:51 AM 08/17/2013 11:02 PM Care Teams Turn Down Attendant Relationship Specialty Start Date End Date Moises Vanegas MD [phone] (Work) PCP - General Family Practice 01/27/20
--- OUTSIDE RECORDS SUMMARY | 2024-10-21 08:46 | XMS_ITS | Encounter Summary ---
Author Organization [facility] Address [address] [place] [address] Care Team Providers Care Soft Metals Engraver Hand Name Role Phone Moises Vanegas MD Primary Care Provider [phone] Encounter Details Date Type Department Care Team (Latest Contact Info) Description 01/12/2004 Outpatient Historical [facility] Pod[facility] [address] [place] [address] Luigi Johnson DPKhalif NO ADDRESS ON FILE INGROWING NAIL (Primary Dx); Onychia of toe Social History Tobacco Use Types Packs/Day Years Used Date Smoking Tobacco: Never Assessed Sex and Gender Information Value Date Recorded Sex Assigned at Not on file Legal 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
--- OUTSIDE RECORDS SUMMARY | 2024-10-21 08:46 | XMS_ITS | Encounter Summary ---
Author Organization [facility] Address [address] [place] [address] Care Team Providers Care Air Compressor Operator Name Role Phone Moises Vanegas MD Primary Care Provider [phone] Encounter Details Date Type Department Care Team (Latest Contact Info) Description 04/26/[address] 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
--- OUTSIDE RECORDS SUMMARY | 2024-10-21 08:46 | XMS_ITS | Encounter Summary ---
Author Organization [facility] Address [address] [place] [address] Care Team Providers Care Dietary Supervisor Name Role Phone Moises Vanegas MD Primary Care Provider -[phone] Encounter Details Date Type Department Care Team (Late st Contact Info) Description 01/15/2006 Outpatient Historical HIS IN BED Onur Marlow MD NO ADDRESS ON FILE Atrial Fibrillation (CMS/HCC) (Primary Dx); Bipolar Disorder, Unspecified (CMS/HCC); Tobacco Use Disorder Social History Tobacco Use Types Packs/Day Years Used Date Smoking Tobacco: Never Assessed Sex and Gender Information Value Date Recorded Sex Assigned at Not on file Legal Sex Male 5:28 AM FURNACE INSTALLER HELPER Gender Identity Not on file Sexual Orientation Not on file documented as of this encounter Plan of Treatment Not on file documented as of this encounter Procedures Procedure Name Priority Date/Time Associated Diagnosis Comments CARDIAC ENZYMES Routine 01/15/2006 1:17 PM FURNACE INSTALLER HELPER CARDIAC ENZYMES Routine 01/15/2006 7:22 AM FURNACE INSTALLER HELPER D-DIMER Routine 01/15/2006 7:22 AM FURNACE INSTALLER HELPER XR CHEST PA OR AP 1 VW Routine 01/15/2006 4:45 AM FURNACE INSTALLER HELPER DRUG SCREEN, URINE Routine 01/15/2006 2: 23 AM FURNACE INSTALLER HELPER CARDIAC ENZYMES Routine 01/15/2006 1:13 AM FURNACE INSTALLER HELPER CBC WITH DIFFERENTIAL Routine 01/15/2006 1:13 AM FURNACE INSTALLER HELPER PTT Routine 01/15/2006 1:13 AM FURNACE INSTALLER HELPER PROTIME-INR Routine 01/15/2006 1:13 AM FURNACE INSTALLER HELPER TSH Routine 01/15/2006 1:13 AM FURNACE INSTALLER HELPER T4 FREE Routine 01/15/2006 1:13 AM FURNACE INSTALLER HELPER BASIC METABOLIC PANEL Routine 01/15/2006 1:13 AM FURNACE INSTALLER HELPER documented in this encounter Results * CARDIAC ENZYMES (01/15/2006 1:17 PM FURNACE INSTALLER HELPER) CKMB 0.3 0.0 - 5.0 ng/mL INTERFACE SYSTEM TROPONIN I <0.1 0.0 - 1.5 ng/mL INTERFACE SYSTEM 01/15/2006 1:17 PM FURNACE INSTALLER HELPER Yamilet Jacome DO CHEMISTRY ORDERABLES Final Resu Performing Organization Address [facility] Phone Number INTERFACE SYSTEM Refer to clinic/hospital department * CARDIAC ENZYMES (01/15/2006 7:22 AM FURNACE INSTALLER HELPER) CKMB 0.6 0.0 - 5.0 ng/mL INTERFACE SYSTEM TROPONIN I <0.1 0.0 - 1.5 ng/mL INTERFACE SYSTEM 01/15/2006 7:22 AM FURNACE INSTALLER HELPER Yamilet Jacome DO CHEMISTRY ORDERABLES Final Resu lt Performing Organization Address [facility] Phone Number INTERFACE SYSTEM Refer to clinic/hospital department * D-DIMER (01/15/2006 7:22 AM FURNACE INSTALLER HELPER) D-DIMER QUANT <0.2 0.0 - 0.5 mcg/mL INTERFACE SYSTEM 01/15/2006 7:22 AM FURNACE INSTALLER HELPER Onur Marlow MD HEMATOLOGY ORDERABLES Final Res ult INTERFACE SYSTEM Refer to clinic/hospital department * XR CHEST PA OR AP (01/15/2006 4:45 AM FURNACE INSTALLER HELPER) Anatomical Region Laterality Modality Chest Other 01/15/2006 4:45 AM FURNACE INSTALLER HELPER Narrative 01/15/2006 4:45 AM FURNACE INSTALLER HELPER AP PORTABLE CHEST 01/15/2006 AT 0113. Clinical History: Irregular heartbeat. Comparisons: None. Findings: Heart size and mediastinal silhouette appear within normal limits. Lungs are clear withoutevidence for effusion, edema, or infiltrates. Impressions: 1. No acute cardiopulmonary disease. - Dictated By: Moises Austin M.D., Ph.D. Electronically Signed By: Moises Austin M.D., Ph.D. Date Signed: 01/22/06 [facility] Procedure Note Provider, Historical - 12/30/2008 AP PORTABLE CHEST 01/15/2006 AT 0113. Clinical History: Irregular heartbeat. Comparisons: None. Findings: Heart size and mediastinal silhouette appear within normal limits. Lungsare clear withoutevidence for effusion, edema, or infiltrates. Impressions: 1. No acute cardiopulmonary disease. - Dictated By: Moises Austin M.D., Ph.D. Electronically Signed By: Moises Austin M.D., Ph.D. Date Signed: 01/22/06 [facility] Yamilet Jacome DO DIAGNOSTIC IMAGING ORDERABLES F inal Result * DRUG SCREEN, URINE (01/15/2006 2:23 AM FURNACE INSTALLER HELPER) OPIATE QUAL, URINE Drug Negative Drug Negative INTERFACE SYSTEM AMPHETAMINE QUAL, URINE Drug Negative Drug Negative INTERFACE SYSTEM BARBITURATE QUAL, URINE Drug Negative Drug Negative INTERFACE SYSTEM COCAINE QUAL URINE Drug Negative Drug Negative INTERFACE SYSTEM PCP QUAL, URINE Drug Negative Drug Negative INTERFACE SYSTEM CANNABINOIDS QUAL, URINE Drug Negative Drug Negative INTERFACE SYSTEM BENZODIAZEPINE QUAL, URINE Drug Negative Drug Negative INTERFACE SYSTEM 01/15/2006 2:23 AM FURNACE INSTALLER HELPER Yamilet Jacome DO URINE ORDERABLES Final Result INTERFACE SYSTEM Refer to clinic/hospital department * (ABNORMAL) CBC WITH DIFFERENTIAL (01/15/2006 1:13 AM FURNACE INSTALLER HELPER) WBC 13.3(H) 4.5 - 11.0 K/ul INTERFACE SYSTEM RBC 5.54 4.60 - 6.20 Mil/ul INTERFACE SYSTEM HEMOGLOBIN 17.1 14.0 - 18.0 g/dL INTERFACE SYSTEM HEMATOCRIT 49.2 41.0 - 53.0 % INTERFACE SYSTEM MCV 88.8 84.0 - 103.0 Fl INTERFACE SYSTEM MCH 30.9 27.0 - 34.0 pg INTERFACE SYSTEM MCHC 34.8 30.0 - 35.0 g/dL INTERFACE SYSTEM RDW 12.9 11.0 - 14.5 % INTERFACE SYSTEM PLATELETS 343 140 - 440 K/ul INTERFACE SYSTEM MPV 10.7 8.9 - 12.8 Fl INTERFACE SYSTEM NEUTROPHILS 53.3 42.2 - 75.2 % INTERFACE SYSTEM LYMPHOCYTES 32.8 24.0 - 44.0 % INTERFACE SYSTEM MONOCYTES 9.1 2.0 - 10.0 % INTERFA CE SYSTEM EOSINOPHILS 3.7 0.0 - 7.0 % INTERF SITA SYSTEM BASOPHILS 1.1(H) 0.0 - 1.0 % INTERFAC E SYSTEM NEUTROPHIL ABSOLUTE 7.1 2.0 - 8.0 K/uL INTERFACE SYSTEM LYMPHOCYTE ABSOLUTE 4.3(H) 1.2 - 4.0 K/ul INTERFACE SYSTEM MONOCYTE ABSOLUTE 1.2(H) 0.1 - 0.6 K/ul INTERFACE SYSTEM EOSINOPHIL ABSOLUTE 0.5 0.0 - 0.7 K/ul INTERFACE SYSTEM BASOPHILS ABSOLUTE 0.1 0.0 - 0.2 K/ul INTERFACE SYSTEM PERIPHERAL BLOOD SMEAR REVIEW Automated Diff Automated Diff INTERFACE SYSTEM 01/15/2006 1:13 AM FURNACE INSTALLER HELPER Yamilet Jacome DO HEMATOLOGY ORDERABLES Final Res ult INTERFACE SYSTEM Refer to clinic/hospital department * PTT (01/15/2006 1:13 AM FURNACE INSTALLER HELPER) Pathologist [facility] PTT 32.5 21.6 - 35.6 Secs INTERFACE SYSTEM Comment: Therapeutic Range: Hi-level PE/DVT heparin protocol 90.1 -110 sec Lo-level PE/DVT heparin protocol 75.1 - 95 sec Cardiac Heparin Protocol 85.1 - 100 sec Neuro Heparin Protocol 70.1 - 85 sec As of 03/07/05 note change in APTT Normal Range. 01/15/2006 1:13 AM FURNACE INSTALLER HELPER us Yamilet Jacome DO HEMATOLOGY ORDERABLES Final Res ult Performing Organization Address [facility] Co de Phone Number INTERFACE SYSTEM Refer to clinic/hospital department * PROTIME-INR (01/15/2006 1:13 AM FURNACE INSTALLER HELPER) Pathologist [facility] PROTIME 13.4 13.0 - 15.7 Secs INTERFACE SYSTEM Comment: As of 05 note change in normal range. INR 0.9 INTERFACE SYSTEM Comment: Expected Values for INR: DVT/PE Goal INR 2.5; range 2.0 - 3.0 Valve Replacement Tissue Goal INR 2.5; range 2.0 - 3.0 Mechanical Goal INR 3.0; range 2.5 - 3.5 POST-SD Goal INR 2.5; range 2.0 - 3.0 or Goal 3.0; range 2.5 - 3.5 Atrial Fibrillation Goal INR 2.5; range 2.0 - 3.0 Ischemic Stroke Goal INR 2.5; range 2.0 - 3.0 For additional information see Guidelines for Anticoagulation available from the pharmacy [facility] 01/15/2006 1:13 AM FURNACE INSTALLER HELPER us Yamilet Jacome DO HEMATOLOGY ORDERABLES Final Res ult INTERFACE SYSTEM Refer to clinic/hospital department * T4 FREE (01/15/2006 1:13 AM FURNACE INSTALLER HELPER) Pathologist [facility] T4 FREE 1.45 0.89 - 1.76 ng/dL INTERFACE SYSTEM 01/15/2006 1:13 AM FURNACE INSTALLER HELPER Yamilet Harriet Ayaz DO CHEMISTRY ORDERABLES Final Resu lt Performing Organization Address [facility] Phone Number INTERFACE SYSTEM Refer to clinic/hospital department * TSH (01/15/2006 1:13 AM FURNACE INSTALLER HELPER) TSH 4.701 0.350 - 5.500 uIU/ml INTERFACE SYSTEM Comment: As of 04 at 3:00 p.m. [facility] has changed the methodology for TSH, and with this change the reference range has changed from 0.49-4.67 to 0.35-5.5 uIU/ml. 01/15/2006 1:13 AM FURNACE INSTALLER HELPER Yamilet Harriet Jacome DO CHEMISTRY ORDERABLES Final Resu lt Performing Organization Address [facility] Phone Number INTERFACE SYSTEM Refer to clinic/hospital department * BASIC METABOLIC PANEL (01/15/2006 1:13 AM FURNACE INSTALLER HELPER) GLUCOSE 82 70 - 110 mg/dL INTERFACE SYSTEM BUN 16 9 - 20 mg/dL INTERFACE SYSTEM CREATININE 1.1 0.7 - 1.5 mg/dL INTERFACE SYSTEM SODIUM 140 136 - 145 mEq/L INTERFACE SYSTEM POTASSIUM 3.8 3.5 - 5.0 mEq/L INTERFACE SYSTEM CHLORIDE 106 95 - 110 mEq/L INTERFACE SYSTEM CO2 25 22 - 32 mmol/l INTERFACE SYSTEM ANION GAP 13 9 - 20 mEq/L INTERFACE SYSTEM OSMOLALITY, CALCULATED 288 275 - 295 mOsm/Kg INTERFACE SYSTEM CALCIUM 10.1 8.4 - 10.5 mg/dL INTERFACE SYSTEM 01/15/2006 1:13 AM FURNACE INSTALLER HELPER us Blairn Harriet Ayaz DO CHEMISTRY ORDERABLES Final Resu lt Performing Organization Address [facility] Phone Number INTERFACE SYSTEM Refer to clinic/hospital department * CARDIAC ENZYMES (01/15/2006 1:13 AM FURNACE INSTALLER HELPER) CKMB 1.1 0.0 - 5.0 ng/mL INTERFACE SYSTEM TROPONIN I <0.1 0.0 - 1.5 ng/mL INTERFACE SYSTEM 01/15/2006 1:13 AM FURNACE INSTALLER HELPER us Yamilet Jacome DO CHEMISTRY ORDERABLES Final Resu lt INTERFACE SYSTEM Refer to clinic/hospital department documented in this encounter Visit Diagnoses Diagnosis Atrial fibrillation (CMS/HCC)- Primary Atrial fibrillation Bipolar disorder, unspecified (CMS/HCC) Bipolar disorder, unspecified Tobacco use disorder documented in this encounter Care Teams Dietary Supervisor Relationship Specialty Start Date End Date Moises Vanegas MD [phone] (Work) PCP - General Family Practice 01/27/20 documented as of this encounter
--- OUTSIDE RECORDS SUMMARY | 2024-10-21 08:46 | XMS_ITS | Encounter Summary ---
Author Organization [facility] Address [address] 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
--- OUTSIDE RECORDS SUMMARY | 2024-10-21 08:46 | XMS_ITS | Encounter Summary ---
Author Organization [facility] Address [address] [facility] [address] Care Team Providers Care Analog Ic Design Engineer Name Role Phone Moises Vanegas MD Primary Care Provider [phone] Encounter Details Date Type Department Care Team (Latest Contact Info) Description 03/04/2006 Outpatient Historical [facility] All[facility] Ast[facility]- [address] [place] [id number] Stephane Pablo MD NO ADDRESS ON FILE Chronic Rhinitis (Primary Dx); Acute Sinusitis, Unspecified; Allergic Rhinitis, Cause Unspecified Social History Tobacco Use Types Packs/Day Years Used Date Smoking Tobacco: Never Assessed Sex and Gender Information Value Date Recorded Sex Assigned at Not on file 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
--- OUTSIDE RECORDS SUMMARY | 2024-10-21 08:46 | XMS_ITS | Encounter Summary ---
Author Organization [facility] Address [address] [place] [address] Care Team Providers Care Multiple Drill Operator Name Role Phone Moises Vanegas MD Primary Care Provider -[phone] Encounter Details Date Type Department Care Team (Latest Contact Info) Description 08/05/2014 Ancillary Orders [facility] External Department [address] 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 Exam: XR LUMBAR SPINE 2 OR 3 VW Date/Time of Exam: Aug 05, 2014 03:42:58 PM Reason For Exam: Low back pain with sciatica, sciatica laterality unspecified, unspecified. Alignment is normal. No bony lesion or fracture is seen. No significant degenerative changes are identified. Impression: No significant abnormality. MWC/jaw - uploaded from [employer] - Narrative Procedure Note Nitin Gerber MD - 08/06/2014 IMPRESSION IMPRESSION: See report below. Exam: XR LUMBAR SPINE 2 OR 3 VW Date/Time of Exam: Aug 05, 2014 03:42:58 PM Reason For Exam: Low back pain with sciatica, sciatica laterality unspecified, unspecified. Alignment is normal. No bony lesion or fracture is seen. No significant degenerative changes are identified. Impression: No significant abnormality. MWC/jaw - uploaded from [employer] - Nitin Madden MD DIAGNOSTIC IMAGING ORDERABLES Fi nal Result documented in this encounter Visit Diagnoses Diagnosis Low back pain with sciatica, sciatica laterality unspecified, unspecified- Primary Low back pain with sciatica, sciatica laterality unspecified, unspecified documented in this encounter Care Teams Multiple Drill Operator Relationship Specialty Start Date End Date Moises Vanegas MD [phone] (Work) PCP - General Family Practice 01/27/20 documented as of this encounter
--- OUTSIDE RECORDS SUMMARY | 2024-10-21 08:46 | XMS_ITS | Encounter Summary ---
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) Social History Tobacco Use Types Packs/Day Years Used Date Smoking Tobacco: Never Assessed Sex and Gender Information Value Date Recorded Sex Assigned at Not on file 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
--- OUTSIDE RECORDS SUMMARY | 2024-10-21 08:46 | XMS_ITS | Encounter Summary ---
Author Organization [facility] Address [address] [facility] [place] [address] Care Team Providers Care Button Sawyer Name Role Phone Moises Vanegas MD Primary Care Provider [phone] Encounter Details Date Type Department Care Team (Latest Contact Info) Description 11/09/2003 Outpatient Historical [facility] [address] 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
--- OUTSIDE RECORDS SUMMARY | 2024-10-21 08:46 | XMS_ITS | Encounter Summary ---
Author Organization [facility] Address [address] [place] [address] Care Team Providers Care Orthopedic Dentist Name Role Phone Moises Vanegas MD Primary Care Provider [phone] Encounter Details Date Type Department Care Team (Latest Contact Info) Description 11/02/2004 Outpatient Historical [facility] Family Medicine-[facility] [address] [place] [address] Mansi Munguia MD [address] [place] [address] Routine medical exam (Primary Dx); Pain in limb Social History Tobacco Use Types Packs/Day Years Used Date Smoking Tobacco: Never Assessed Sex and Gender Information Value Date Recorded Sex Assigned at Not on file 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
--- OUTSIDE RECORDS SUMMARY | 2024-10-21 08:46 | XMS_ITS | Encounter Summary ---
Author Organization [facility] Address [address] [place] [address] Care Team Providers Care Short Haul Driver Name Role Phone Moises Vanegas MD Primary Care Provider [phone] Encounter Details Date Type Department Care Team (Late st Contact Info) Description 05/29/2005 Outpatient Historical [facility] Occupational Medicine-[facility] [address] [place] [phone] Ravi Thompson MD 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
--- OUTSIDE RECORDS SUMMARY | 2024-10-21 08:46 | XMS_ITS | Encounter Summary ---
Author Organization [facility] Address [address] [place] [address] Care Team Providers Care Door Frame Builder Name Role Phone Moises Vanegas MD Primary Care Provider [phone] Reason for Referral * Radiology Services (Routine) - Closed Specialty Diagnoses / Procedures Referred By Contac t Referred To Contact Diagnoses Disorder of sacrum Procedures XR FLUORO NEEDLE GUIDANCE SPINE Shawn Cordoba MD Phone: tel: fax: Referral ID Status Reason Start Date Expiration Date Visits Re quested Visits Authorized [id number] Closed 01/07/2019 02/07/2020 12 12 FITTER Encounter Details Date Type Department Care Team (Late st Contact Info) Description 01/07/2019 Ancillary Orders [facility] Pain Management Procedures [place] [address] [place] [address] [place] [address] 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 Exam was auto-finalized. Shawn Cordoba MD DIAGNOSTIC IMAGING ORDERABLES Final Result documented in this encounter Visit Diagnoses Diagnosis Disorder of sacrum Disorders of sacrum Disorder of sacrum Disorders of sacrum documented in this encounter Care Teams Door Frame Builder Relationship Specialty Start Date End Date Moises Vanegas MD [phone] (Work) PCP - General Family Practice 01/27/20 documented as of this encounter
--- OUTSIDE RECORDS SUMMARY | 2024-10-21 08:46 | XMS_ITS | Encounter Summary ---
Author Organization [facility] Address [address] [place] [address] Care Team Providers Care Manager Etl Name Role Phone Moises Vanegas MD Primary Care Provider [phone] Encounter Details Date Type Department Care Team (Latest Contact Info) Description 01/17/2006 Outpatient Historical [facility] Family Medicine-[facility] [address] 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
--- OUTSIDE RECORDS SUMMARY | 2024-10-21 08:46 | XMS_ITS | Encounter Summary ---
Author Organization [facility] Address [address] [facility] [place] [address] Care Team Providers Care Sand Mill Operator Core Sand Name Role Phone Moises Vanegas MD Primary Care Provider -[phone] Encounter Details Date Type Department Care Team (Latest Contact Info) Description 07/02/2006 Outpatient Historical [facility] Medicine-[facility] [address] 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
--- OUTSIDE RECORDS SUMMARY | 2024-10-21 08:46 | XMS_ITS | Encounter Summary ---
Author Organization [facility] Address [address] [facility] [place] [address] Care Team Providers Care Special Needs Tutor Name Role Phone Moises Vanegas MD Primary Care Provider -[phone] Encounter Details Date Type Department Care Team (Late st Contact Info) Description 01/31/2001 Outpatient Historical [facility] Urology- [place] [address] 3rd [place] [phone] Nitin Conrad MD [address] [address] TORSION OF TESTIS (Primary Dx) Social History Tobacco Use Types Packs/Day Years Used Date Smoking Tobacco: Never Assessed Sex and Gender Information Value Date Recorded Sex Assigned at Not on file Legal 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
--- OUTSIDE RECORDS SUMMARY | 2024-10-21 08:46 | XMS_ITS | Encounter Summary ---
Author Organization [facility] Address [address] [facility] [place] [address] Care Team Providers Care Technical Asst Name Role Phone Moises Vanegas MD Primary Care Provider -[phone] Encounter Details Date Type Department Care Team (Latest Contact Info) Description 06/27/2006 Outpatient Historical [facility] Orthopedics- 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
--- OUTSIDE RECORDS SUMMARY | 2024-10-21 08:46 | XMS_ITS | Encounter Summary ---
Author Organization [facility] Address [address] [place] [address] Care Team Providers Care Rug Inspector Helper Name Role Phone Moises Vanegas MD Primary Care Provider -[phone] Encounter Details Date Type Department Care Team (Latest Contact Info) Description 12/23/2003 Outpatient [facility] Podiatry-[place] [address] [place] [address] Luigi Johnson DPM NO ADDRESS ON FILE INGROWING NAIL (Primary Dx); Onychia of toe; GENERALIZED HYPERHIDROSIS; DERMATOPHYTOSIS OF FOOT; Pain in limb Social History Tobacco Use Types Packs/Day Years Used Date Smoking Tobacco: Never Assessed Sex and Gender Information Value Date Recorded Sex Assigned at Not on file 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
--- OUTSIDE RECORDS SUMMARY | 2024-10-21 08:46 | XMS_ITS | Encounter Summary ---
Author Organization [facility] Address [address] [place] [address] Care Team Providers Care Assistant Reading Teacher Name Role Phone Moises Vanegas MD Primary Care Provider -[phone] Encounter Details Date Type Department Care Team (Latest Contact Info) Description 05/23/2006 Outpatient Historical [facility] Orthopedics- 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
--- OUTSIDE RECORDS SUMMARY | 2024-10-21 08:46 | XMS_ITS | Encounter Summary ---
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) Social History Tobacco Use Types Packs/Day Years Used Date Smoking Tobacco: Never Assessed Sex and Gender Information Value Date Recorded Sex Assigned at Not on file 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
--- OUTSIDE RECORDS SUMMARY | 2024-10-21 08:46 | XMS_ITS | Encounter Summary ---
Author Organization [facility] Address [address] [place] [address] Care Team Providers Care Kettle Hand Name Role Phone Moises Vanegas MD Primary Care Provider -[phone] Encounter Details Date Type Department Care Team (Late st Contact Info) Description 08/05/[address] [facility] External Department [address] 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
--- OUTSIDE RECORDS SUMMARY | 2024-10-21 08:46 | XMS_ITS | Encounter Summary ---
Author Organization [facility] Address [address] [facility] [place] [address] Care Team Providers Care Assembler Ping Pong Table Name Role Phone Moises Vanegas MD Primary Care Provider -[phone] Encounter Details Date Type Department Care Team (Late st Contact Info) Description 01/29/2003 Outpatient Historical [facility] Urology- [address]tr[address], 3rd [place] [phone] Nitin Conrad MD [address] [address] TORSION OF TESTIS (Primary Dx); MALE GENITAL DIS NOS Social History Tobacco Use Types Packs/Day Years Used Date Smoking Tobacco: Never Assessed Sex and Gender Information Value Date Recorded Sex Assigned at Not on file Legal 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
--- OUTSIDE RECORDS SUMMARY | 2024-10-21 08:46 | XMS_ITS | Encounter Summary ---
Author Organization [facility] Address [address] [place] [address] Care Team Providers Care State Archivist Name Role Phone Moises Vanegas MD Primary Care Provider -[phone] Encounter Details Date Type Department Care Team (Latest Contact Info) Description 02/20/2013 Ancillary Orders [facility] Orthopedics - [facility] [address] [place] [address] Dell Jeffries MD [address] [place] [address] Knee pain (Primary Dx) Social History Tobacco Use Types Packs/Day Years Used Date Smoking Tobacco: Every Day Cigarettes 1 16 Smokeless Tobacco: Never Alcohol Use Standard Drinks/Week Comments Yes 2.5 (1 standard drink = 0.6 oz p ure alcohol) occ Sex and Gender Information Value Date Recorded Sex Assigned at Not on file Legal Sex Male 5:28 AM DECORATING AND ASSEMBLY SUPERVISOR Gender Identity Not on file Sexual Orientation Not on file documented as of this encounter Plan of Treatment Not on file documented as of this encounter Results * XR KNEE 4+ VW BILAT (02/20/2013 9:27 AM DECORATING AND ASSEMBLY SUPERVISOR) Anatomical Region Laterality Modality Lower Extremity Computed Radiogr aphy Narrative 03/06/2013 6:42 AM DECORATING AND ASSEMBLY SUPERVISOR Bilateral knee AP, lateral, PA 45 degree flexion, and sunrise views with weight bearing studies reveal: no osteoarthritis. Noted findings:without evidence of osteolytic lesions, osteoblastic lesions and evidence of fractures. Procedure Note Dell Jeffries MD - 03/06/2013 Bilateral knee AP, lateral, PA 45 degree flexion, and sunrise views withweight bearing studies reveal: no osteoarthritis. Noted findings:withoutevidence of osteolytic lesions, osteoblastic lesions and evidence offractures. us Dell Jeffries MD DIAGNOSTIC IMAGING ORDERABLES Final Result documented in this encounter Visit Diagnoses Diagnosis Knee pain- Primary Pain in joint, lower leg documented in this encounter Care Teams State Archivist Relationship Specialty Start Date End Date Moises Vanegas MD [phone] (Work) PCP - General Family Practice 01/27/20 documented as of this encounter
--- OUTSIDE RECORDS SUMMARY | 2024-10-21 08:46 | XMS_ITS | Encounter Summary ---
Author Organization [facility] Address [address] [place] [address] Care Team Providers Care Bleacher Groundwood Pulp Name Role Phone Mioses Vanegas MD Primary Care Provider -[phone] Encounter Details Date Type Department Care Team (Latest Contact Info) Description 11/15/2003 Outpatient Historical [facility] Nuclear Medicine- [place] [address] [place] [phone] Mansi Munguia MD [address] [place] [address] PAIN IN LIMB (Primary Dx) Social History Tobacco Use Types Packs/Day Years Used Date Smoking Tobacco: Never Assessed Sex and Gender Information Value Date Recorded Sex Assigned at Not on file 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
--- OUTSIDE RECORDS SUMMARY | 2024-10-21 08:46 | XMS_ITS | Encounter Summary ---
Author Organization [facility] Address [address] [place] [address] Care Team Providers Care Senior Abap Developer Name Role Phone Moises Vanegas MD Primary Care Provider -[phone] Encounter Details Date Type Department Care Team (Late st Contact Info) Description 05/23/2007 Outpatient Historical [facility] Imaging Services [address] [place] [address] Mansi Munguia MD [address] 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
--- OUTSIDE RECORDS SUMMARY | 2024-10-21 08:46 | XMS_ITS | Encounter Summary ---
Author Organization [facility] Address [address] [place] [address] Care Team Providers Care Flight Engineer Name Role Phone Moises Vanegas MD Primary Care Provider -[phone] Encounter Details Date Type Department Care Team (Latest Contact Info) Description 11/29/2003 Outpatient [facility] [address] [place] [address] Luigi Johnson DPKhalif NO ADDRESS ON FILE TENOSYNOVITIS FOOT/ANKLE (Primary Dx); OTHER HAMMER TOE; DIFFICULTY IN WALKING Social History Tobacco Use Types Packs/Day Years Used Date Smoking Tobacco: Never Assessed Sex and Gender Information Value Date Recorded Sex Assigned at Not on file 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
--- OUTSIDE RECORDS SUMMARY | 2024-10-21 08:46 | XMS_ITS | Encounter Summary ---
Author Organization [facility] Address [address] [facility] [place] [address] Care Team Providers Care Oil Rig Roughneck Name Role Phone Moises Vanegas MD Primary Care Provider -[phone] Encounter Details Date Type Department Care Team (Latest Contact Info) Description 03/05/2005 Outpatient Historical [facility] Medicine-[facility] [place] [address] 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
--- OUTSIDE RECORDS SUMMARY | 2024-10-21 08:46 | XMS_ITS | Encounter Summary ---
Author Organization [facility] Address [address] [facility] [place] [address] Care Team Providers Care Market Development Executive Name Role Phone Moises Vanegas MD Primary Care Provider -[phone] Encounter Details Date Type Department Care Team (Latest Contact Info) Description 04/06/2005 Outpatient Historical [facility] Medicine-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
--- OUTSIDE RECORDS SUMMARY | 2024-10-21 08:46 | XMS_ITS | Encounter Summary ---
Author Organization [facility] Address [address] [facility] [place] [address] Care Team Providers Care Document Control Associate Name Role Phone Moises Vanegas MD Primary Care Provider -[phone] Encounter Details Date Type Department Care Team (Latest Contact Info) Description 09/11/[address] 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
[2024-10-21 08:52] LABS: Hematocrit 44.0 % (37-53); Hemoglobin 14.40 g/dL (11.27-16.99); Mean Corpuscular HGB Conc 32.7 g/dL (30-55); Mean Corpuscular Hemoglobin 29.5 pg (27-33); Mean Corpuscular Volume 90.2 fl (82-101); Nucleated Red Blood Cells % 0 %; Platelet Count 285 10^3/cmm (157-399); Red Blood Count 4.88 10^6/uL (3.85-5.65); White Blood Count 9.58 10^3/uL (3.29-11.43)
[2024-10-21 09:04] VITALS: BP 113/72; BP 125/66; BP 127/60; PULSE 67; PULSE 74; PULSE 78
[2024-10-21 09:18] LABS: Alanine Aminotransferase 24 U/L (0-41); Albumin Level 4.4 g/dL (3.5-5.2); Alkaline Phosphatase 59 U/L (40-130); Anion Gap 14.3 (5-19); Aspartate Amino Transferase 22 U/L (0-40); Blood Urea Nitrogen 29 mg/dL (6-20); Calcium 10.2 mg/dL (8.5-10.5); Carbon Dioxide 25 mmol/L (22-29); Chloride 104 mmol/L (98-107); Creatinine Clr Calc Pharmacy 95.9330; Globulin 2.5 g/dL (1.3-4.6); Glucose 105 mg/dL (65-115); Osmolality Calculated 294 mOsm/kg (285-295); Potassium 4.3 mmol/L (3.5-5.1); Sodium 139 mmol/L (136-145); Total Protein 6.9 g/dL (6.6-8.7)
[2024-10-21 09:19] LABS: Troponin(5th) Baseline 18 ng/L (0-15)
[2024-10-21 09:30] VITALS: BP 127/65; PULSE 64; O2SAT 95
--- NOTE | 2024-10-21 09:32 | PC.PHAR ---
Pt is [place] but carries his list on his phone.
--- NOTE | 2024-10-21 10:39 | ECG_ITS ---
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 Measurements Intervals Lee Rate: 60 P: -16 MS: 151 QRS: 49 QRSD: 106 T: 56 QT: 470 QTc: 471 Interpretive Statements SINUS RHYTHM ST ELEVATION IN MANY LEADS, PROBABLY EARLY REPOLARIZATION MILDLY PROLONGED QT INTERVAL Compared to ECG 10/21/2024 08:36:53 No significant changes Electronically Signed On 10-21-2024 23:33:18 CDT by Jose Arredondo M.D. [email or web address]
[2024-10-21 10:48] VITALS: BP 120/54; PULSE 55; O2SAT 94
[2024-10-21 10:54] LABS: Troponin 5 2HR 16.95 ng/L (0-15)
[2024-10-21 10:55] LABS: Troponin 5 2HR Delta -1.05 ABS# (0-10)
[2024-10-21 11:45] VITALS: BP 134/73; PULSE 63; O2SAT 96
--- NOTE | 2024-10-21 12:00 | DCPLANNER ---
Addendum entered by Kitty Diallo 10/21/24 12:04: and faxed an order to scheduling for outpatient [place] Original Note: messaged [facility] care for er f/u
== END 2024-10-21 11:46 | disposition home or self-care (01) ==
PROVIDERS: Emergency Provider Family Medicine; PCP Family Medicine
DX: R07.89 Other chest pain (principal); I48.0 Paroxysmal atrial fibrillation; I95.1 Orthostatic hypotension; T50.995A Adverse effect of other drugs, medicaments and biological substances, initial encounter; X58.XXXA Exposure to other specified factors, initial encounter
CPT/HCPCS: 36415; 71045; 80053; 84484; 85025; 93005; 99285; J9999

== ENCOUNTER 2024-11-10 07:14 | Outpatient (CLI) | payer OTHER, SELFPAY ==
[2024-11-10 07:27] VITALS: BMI 34.7
--- NOTE | 2024-11-10 07:27 | ECG_ITS ---
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 Interpretive Statements Lung unchanged pre/post procedure; Intraprocedure shortess of breath; Symptoms resoled by discharge PROCEDURE: At the baseline, the EKG revealed sinus bradycardia with a normal ST Ts. Some features of early repolarization.. The baseline heart was 50 bpm with a blood pressue of 120/65 mm of Hg Lexiscan was infused over a period of 20 seconds. A total of 0.4 milligrams of Lexiscan was infused. The stress phase was continued for a total of 5 minutes. Heart rate at the end of the stress phase was 73 bpm with a blood pressure 116/61 mm of Hg. The EKG at the peak infusion revealed no significant changes. Sestamibi was injected 20 seconds after the Lexiscan infusion. Heart rate at the end of the recovery phase was 68 bpm with a blood pressure of 128/67 mm of Hg. CONCLUSION: 1. No significant EKG changes with the LexiScan infusion 2. No LexiScan induced chest pain or cardiac arrhythmia 3. Normal blood pressure and heart rate response 4. Sestamibi/sestamibi perfusion scan pending; see separate report. Electronically Signed On 11-10-2024 22:38:27 CDT by Roseann Freeman M.D. [email or web address]
--- NOTE | 2024-11-10 07:28 | NMCV_ITS ---
NM sanju perf SPECT r/s* [id number] Bobo Vera Age: 49 Gender: M : 1975 Exam Date: 11/10/2024 08:14 Ordering Phys: Mina Wick DO Technologist: FENG Simmons Exam Location: [facility] Indications: CP STRESS TEST Please see separate stress test report in [facility] for full findings IMAGE PROTOCOL Rest/Stress 1 Lexiscan Day Radiopharmaceutical Dose (mCi) Administration Site Administered by Rest: Tc-99m 11 IV Wendi Aime, VP [employer] Sestamibi Stress:Tc-99m 33 IV Wendi Aime, VP [employer] Sestamibi Rest: 10-Nov-2024 60 Discovery 630 Stress: 10-Nov-2024 30 Discovery 630 0.4mg Lexiscan. Images obtained in supine and prone position. SPECT RESULTS Technical Quality: Good Raw Data Analysis: Normal Image Corrections: No attenuation or motion correction applied Summed Stress Score: 4 Summed Rest Score: 0 Summed Difference Score: 4 PERFUSION FINDINGS Small to moderate area of minimal to moderately decreased tracer uptake involving the basal and mid inferior and mid inferolateral segments. Some reversibility was noted at rest. FUNCTIONAL RESULTS (calculated via Gated SPECT) Stress Image LV EF (%): 54 Stress EDV (mL):210 TID: 1.19 Stress ESV (mL):96 FUNCTIONAL FINDINGS: Segmental wall motion analysis revealing no gross wall motion abnormalities IMPRESSIONS 1. Myocardial perfusion imaging revealing small to moderate area of minimal to moderate reversibility, suggesting ischemia in distribution of the right coronary artery. 2. Normal LV ejection fraction of 54%. 3. LV wall motion analysis revealing no gross wall motion abnormalities. 4. Slightly elevated transient ischemic dilatation ratio of 1.19. Mildly dilated LV cavity with an end-systolic volume of 96 mL No similar previous studies are available for comparison Dr Roseann Freeman MD [facility] (Electronically Signed) Final Date: 10 November 2024 14:38 S
[2024-11-10 08:57] VITALS: BP 128/67; PULSE 69
== END 2024-11-10 07:15 | disposition home or self-care (01) ==
LOC: CDL 07:14
PROVIDERS: PCP Family Medicine; Visit Provider Family Medicine
DX: R07.9 Chest pain, unspecified (principal); I48.91 Unspecified atrial fibrillation; R94.39 Abnormal result of other cardiovascular function study; R00.1 Bradycardia, unspecified
CPT/HCPCS: 36415; 78452; 93017; 96374; A9500

== ENCOUNTER → 2024-11-25 14:33 | Outpatient (BNVA) | payer OTHER, SELFPAY | PROVIDERS: PCP Family Medicine; Visit Provider Internal Medicine Cardiovascular Disease | DX: I48.0 Paroxysmal atrial fibrillation (principal); R94.39 Abnormal result of other cardiovascular function study; R07.9 Chest pain, unspecified; E78.5 Hyperlipidemia, unspecified; I10 Essential (primary) hypertension; Z87.891 Personal history of nicotine dependence; I48.91 Unspecified atrial fibrillation | CPT/HCPCS: 36415; 80048; 85025; 85610; 93005; 99204 ==

== ENCOUNTER 2024-12-03 15:19 | Outpatient (CLI) | payer OTHER, SELFPAY ==
--- NOTE | 2024-12-03 15:45 | USCV_ITS ---
Bobo Vera Age: 49 Gender: M : 1975 Exam Date: 12/03/2024 15:40 Ordering Phys: Jose Arredondo MD ([email or web address]) Technologist: Exam Location: [facility] Indication: murmur BP: 120 / 70 HR: 64 Rhythm: Sinus Technical Quality: Adequate MEASUREMENTS (Male / Female) Normal Values 2D ECHO LV Diastolic Diameter PLAX 4.8 cm 4.2 - 5.9 / 3.9 - 5.3 cm IVS Diastolic Thickness 1.4 cm 0.6 - 1.0 / 0.6 - 0.9 cm IVS Systolic Thickness 1.9 cm LVPW Diastolic Thickness 1.3 cm 0.6 - 1.0 / 0.6 - 0.9 cm LVPW Systolic Thickness 2.1 cm LVOT Diameter 2.6 cm LV Ejection Fraction 2D Teich 69.9 % LV Ejection Fraction MOD 4C 69.8 % LV Ejection Fraction MOD 2C 61.3 % LV Ejection Fraction 2C AL 62.6 % LA Diameter 4.3 cm RA Systolic Volume 4C AL 57.1 ml RA Systolic Volume 4C MOD 53.9 ml Aorta at Sinotubular Diameter 3.1 cm M-MODE LA Ao Ratio MM 1.2 AV Cusp Separation MM 2.6 cm DOPPLER AV Peak Velocity 204.0 cm/s MV Peak Velocity 147.0 cm/s MV Area PHT 3.1 cm squared Mitral E to A Ratio 1.1 TR Peak Velocity 165.0 cm/s TR Peak Gradient 10.9 mmHg TV Peak E Velocity 66.0 cm/s PV Peak Velocity 143.0 cm/s FINDINGS Left Ventricle Normal left ventricular size function, ejection fraction 70%. Intermittent hyperdynamic left ventricular systolic function with ejection fraction 75%. Severe hypertrophy of the basal septum, 2.1 cm. Hypertrophy of the posterior wall, 1.3 cm. Turbulence in the left ventricular outflow tract by color Doppler. Severe left ventricular outflow tract obstruction with peak gradient of 64 mmHg at rest and 100 mmHg with Valsalva. 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 Normal left ventricular diastolic function. Right Ventricle Normal right ventricular size and systolic function. RVSP could not be calculated due to incomplete tricuspid regurgitation velocity profile. Right Atrium Normal right atrial size. Left Atrium Mildly dilated left atrium. IA Septum Normal appearance of the interatrial septum. Mitral Valve Severe systolic anterior motion of the anterior mitral valve. Mild mitral valve regurgitation. No mitral valve stenosis. No mitral annular calcification. Aortic Valve Aortic valve not well-visualized. No aortic valve stenosis or regurgitation. Tricuspid Valve Normal tricuspid valve structure. No tricuspid valve stenosis or regurgitation. Pulmonic Valve Normal pulmonic valve structure. No pulmonic valve stenosis or regurgitation. Pericardium Small pericardial effusion seen along the lateral side of the left ventricle. No echocardiographic evidence of tamponade. Aorta Normal diameter of the aortic root and ascending thoracic aorta. IVC Inferior vena cava not visualized. CONCLUSIONS 1. Normal left ventricular size and normal to hyperdynamic left ventricular systolic function with ejection fraction ranging from 70 to 75%. 2. Hypertrophic obstructive cardiomyopathy with severe hypertrophy of basal septal wall segment and systolic anterior motion of the anterior mitral valve leaflet. Severe left ventricular outflow tract peak pressure gradient of 64 mmHg at rest and 100 mmHg with Valsalva. 3. Unable to measure pulmonary artery systolic pressure due to lack of tricuspid valve regurgitation velocity. 4. Small pericardial effusion along the lateral wall of the left ventricle without signs of tamponade. Jose Arredondo MD, FACC (Electronically Signed) Final Date: 09 December 2024 18:09 S
== END 2024-12-03 15:20 | disposition home or self-care (01) ==
LOC: RAD 15:19
PROVIDERS: PCP Family Medicine; Visit Provider Internal Medicine Cardiovascular Disease
DX: R07.9 Chest pain, unspecified (principal); I51.7 Cardiomegaly; R93.1 Abnormal findings on diagnostic imaging of heart and coronary circulation; I51.89 Other ill-defined heart diseases; I34.0 Nonrheumatic mitral (valve) insufficiency; I31.39 Other pericardial effusion (noninflammatory); I42.8 Other cardiomyopathies
CPT/HCPCS: 93306

== ENCOUNTER 2024-12-04 05:50 | Outpatient (CLI) | payer OTHER, SELFPAY ==
[2024-12-04] VITALS (14 sets, daily range): BP systolic 99–152; BP diastolic 63–84; PULSE 62–71; RESP 15–21; TEMP 37.1; O2SAT 94–97; BMI 36.9
--- NOTE | 2024-12-04 06:00 | XACV_ITS ---
Exam Room: 2 Ht: 180 cm Wt: 120 kg BSA: 2.50 m2 Gender: Male : 1975 Any Known Allergies: Other Exam Priority: Routine Procedure(s): Procedure Description: Diagnostic procedure Procedure Description: Left Heart Catheterization Procedure Description: Left ventriculography Procedure Description: Coronary Angiography Carmen VILLEGAS; Diagnostic Cath Status: Elective Diagnostic Findings * Left Main has no disease. * Circumflex has no disease. * Mid Left Anterior Descending to Distal Left Anterior Descending: luminal irregularities 20% stenosis, JUDY: 3 flow. * Distal Left Anterior Descending: mild 40% stenosis, JUDY: 3 flow. * Proximal Right Coronary Artery to Distal Right Coronary Artery: luminal irregularities 20% stenosis, JUDY: 3 flow. * Coronary angiography shows right dominance. PCI Indication: New Onset Angina <= 2 months Conclusions 1. There is mild coronary artery disease with two vessel disease. 2. All dumont are normal. 3. Normal left ventricular systolic function. Ejection fraction of 60%. Recommendations * Continue current medical management and risk factor modification. Diagnostic RX Recommendation: medical therapy and/or counseling Ventriculography Ejection Fraction: 60.0 % Pressures Phase:Rest AO : 112 / 59 ( 76 ) @ 9:22:00 AM 112 / 59 ( 76 ) @ 9:22:00 AM LV : 128 / -6 / 16 @ 9:21:00 AM 130 / -8 / 13 @ 9:21:00 AM 131 / -11 / 12 @ 9:22:00 AM Valves Phase:DefaultPhase AV : 17.0 @ 8:32:56 AM AV Mean Gradient: 20.0 @ 8:32:56 AM Clinical Evaluation EBL: 5mL-10mL Procedural Details Yovani Sanchez RN, PUBLIC HEALTH DOCTOR was relieved by Idalmis Dallas RN as monitoring person. Procedure Consent Obtained. Admit Source: Out Patient. Pre-Procedure Time Out. Identified patient by full name and date of as verbalized by the patient/guarantor. Does the consent match the physician's order: Yes. Accurate & Complete Informed Consent: Yes. Inpatient/Outpatient History & Physical on Chart: Yes. If H&P is completed, is and addenduem needed: No; If yes, is the addendum complete: N/A. Visualize and Verify Site with Patient/Guarantor: N/A. Relevant Radiology Images available: N/A. The risks, benefits, and alternatives of sedation and/or procedure were discussed by physician. The patient agrees to continue. Procedure started. [facility] Clinical Fraility Score: 3: Managing Well. [place] Indications: Worsening Angina. Chest Pain Symptom Assessment: Typical Angina Symptoms. Correct patient, site and procedure confirmed by cath team. Current diagnosis: Chest Pain, Abnormal stress test. PERRLA. Strong, equal hand soil and plant scientist bilaterally. Lungs clear x 5 lobes. IV Site on Arrival: 20 gauge in the right anticubital. IV Fluids: 0.9% NaCl at KVO. 0 mL infused prior to wetlands conservation laborer. Pre Procedural Pulses: bilateral dorsalis pedis was 3+. Pre Procedural Pulses: bilateral posterior tibial was 3+. Pre Procedural Pulses: bilateral radial was 3+. Oxygen started at 2liters/min via nasal canula. right radial was prepped with chloroprep then draped in the usual sterile fashion. right groin was prepped with chloroprep then draped in the usual sterile fashion. Baseline sample Acquired. HR: 58 BPM. Physician notified. Physician arrived. Physician scrubbed in. Immediate Pre-Procedure Time Out. Correct Patient: Yes; Correct Procedure: Yes; Correct Site: Yes; Correct Patient Position: Yes; Correct Supplies: Yes; Dried Flammable Prep: Yes; Blood Products Available: No;. Lidocaine 1% infiltrated to the right radial. Arterial access obtained. A 5 ghanaian Rodrigo catheter in over wire. Multiple views taken of left coronary artery. Catheter redirected to the RCA. Multiple views taken of right coronary artery. Catheter removed over the exchange wire. A 5 ghanaian Angled Pig catheter in over wire. EDP Sample taken: LV 128/-7,16; HR: 60 BPM; SpO2: 97%. LV gram performed in FARMER @ 10 mL/second for a total of 30 mL. EDP Sample taken: LV 130/-9,13; HR: 62 BPM; SpO2: 96%. Pullback taken: LV 131/-12,12; AO 112/59(76); Mean: 20mmHg, Peak to Peak: 17mmHg, SEP: 19sec/min; HR: 63 BPM; SpO2: 96%. Catheter removed over the exchange wire. A TR Band was successful obtaining hemostatsis at the Right Radial artery insertion site. Physician scrubbed out. Post Procedure: Pulses reassessed and unchanged. PERRLA. Strong, equal hand soil and plant scientist bilaterally. No VTE prophylaxis required. Medication's Wasted: Lidocaine 1% = 18 mL. Medication's Wasted: Nitro = 49.8 mg. Medication's Wasted: Heparin = 1000 unit , Versed 2mg. Total IV fluids: 50 mL. Post-op diagnosis: Non-obstructive CAD. Complications: None. Estimated blood loss: 5mL-10mL. Responsiveness - Normal response to verbal stimuli; alert and oriented, PERRLA. Airway - Unaffected, no intervention required; spontaneous ventilation. Circulation: W/N/L, pulses unchanged. Nausea/Vomiting: No. Procedure completed. Patient transferred by wheelchair to CPRU. Vital chart was stopped. Access Site Site: Right Radial artery Sheath Size: 6 Fr Hemostasis Method: TR Band Hemostasis Success: Successful Procedure Medications Start: 7:51 AM Stop: 7:51 AM Medication: Versed Amount: 1 mg Route: I.V. Start: 7:51 AM Stop: 7:51 AM Medication: Fentanyl Amount: 50 mcg Route: I.V. Start: 7:54 AM Stop: 7:54 AM Medication: Versed Amount: 1 mg Route: I.V. Start: 8:01 AM Stop: 8:01 AM Medication: Versed Amount: 1 mg Route: I.V. Start: 8:01 AM Stop: 8:01 AM Medication: Fentanyl Amount: 25 mcg Route: I.V. Start: 8:06 AM Stop: 8:06 AM Medication: Versed Amount: 1 mg Route: I.V. Start: 8:06 AM Stop: 8:06 AM Medication: Fentanyl Amount: 25 mcg Route: I.V. Start: 8:10 AM Stop: 8:10 AM Medication: Nitrogylcerin Amount: 200 mcg Route: I.A. Start: 8:11 AM Stop: 8:11 AM Medication: Heparin Amount: 5000 units Route: I.V. I, the attending physician, have reviewed and verified all procedure medications. Yes, all medications given per verbal order History/Risk Factors Hypertension: Yes Dyslipidemia: Yes Peripheral Arterial Disease (PAD): No Myocardial Infarction (LA): No Obesity: No Renal Disease: No Tobacco Use: Former Prior Interventions PCI: No CABG: No Valve Surgery: No Report Signatures Finalized by Jolly Morales MD on 12/13/2024 10:38 PM
--- NOTE | 2024-12-04 07:50 | W.PM.OPSUD ---
Surgery/Procedure H&P Update DATE OF PROCEDURE: December 04, 2024 DATE H&P PERFORMED: 11/25/24 H&P UPDATE INFORMATION: I have reviewed H&P completed within last 30 days, I have examined patient prior to procedure and No changes to prior documentation PREOP DIAGNOSIS: Abnormal stress test/chest pain PLANNED PROCEDURE: Operation Date: 12/04/24 07:00 Proposed Procedures p Cardiac Catheterization - C w/wo LV & Coros(Left) - Jolly Morales MD PATIENT REASSESSED PRIOR TO SEDATION, WITH NO CHANGE NOTED: Yes PHYSICAL EXAM: alert, oriented x 3, clear to auscultation bilaterally, regular rate & rhythm and operative site marked AIRWAY EVAL/ANESTHESIA PLAN: ASA II, Risks, benefits & alternatives of sedation and/or procedure discussed and Patient agrees to continue as planned ADDITIONAL INFORMATION: Patient has been explained all risk-benefit and alternative for the procedure. Patient understand 2% risk of stroke major bleed. Patient understand 5% risk of minor bleeding oozing infection hematoma contrast-induced nephropathy urgent or emergent vascular/cardiac surgery. Patient fully understood it and would like to proceed with that
--- NOTE | 2024-12-04 08:30 | SUR.PREOP ---
POST CATH NOTE Received patient from warehouse laborer. Status post cardiac catheterization via the right radial approach. TR Band in place. Site is hemostatic. Family at bedside. Dr Morales in to discuss findings with the patient/family. They understood well. Vitals and assessments per flowsheet. Call light within reach. Informed to call for needs.
--- NOTE | 2024-12-04 08:30 | SUR.PHASEII ---
IV FLUIDS SET POST CATH AT 100 ML/HR OF 0.9% NS. Infusing without difficulty.
== END 2024-12-04 12:02 | disposition home or self-care (01) ==
PROVIDERS: PCP Family Medicine; Visit Provider Internal Medicine Cardiovascular Disease
DX: I25.118 Atherosclerotic heart disease of native coronary artery with other forms of angina pectoris (principal); I10 Essential (primary) hypertension; E78.5 Hyperlipidemia, unspecified; Z87.891 Personal history of nicotine dependence; I48.0 Paroxysmal atrial fibrillation
CPT/HCPCS: 36415; 93458; 96365; 99152; C1769; C1887; C1894; J1644; J2250; J3010; J3490; J7030; J9999; Q0163; Q9967

== ENCOUNTER → 2024-12-11 11:40 | Outpatient (BNVA) | payer OTHER, SELFPAY | PROVIDERS: PCP Family Medicine; Visit Provider Internal Medicine Cardiovascular Disease | DX: I48.0 Paroxysmal atrial fibrillation (principal); Z79.82 Long term (current) use of aspirin; E78.5 Hyperlipidemia, unspecified; I10 Essential (primary) hypertension; I25.10 Atherosclerotic heart disease of native coronary artery without angina pectoris; I42.1 Obstructive hypertrophic cardiomyopathy; Z87.891 Personal history of nicotine dependence | CPT/HCPCS: 99214 ==

== ENCOUNTER → 2024-12-24 08:55 | Outpatient (BNVA) | payer OTHER, SELFPAY | PROVIDERS: PCP Family Medicine; Visit Provider Internal Medicine Cardiovascular Disease | DX: I48.0 Paroxysmal atrial fibrillation (principal); Z79.82 Long term (current) use of aspirin; E78.5 Hyperlipidemia, unspecified; I10 Essential (primary) hypertension; I25.10 Atherosclerotic heart disease of native coronary artery without angina pectoris; I42.1 Obstructive hypertrophic cardiomyopathy; Z87.891 Personal history of nicotine dependence | CPT/HCPCS: 36415; 80061; 99214 ==